=== PATIENT | female | born 1935 | race Hispanic/Latino ===

== ENCOUNTER 2018-01-28 | Emergency (ER) | payer MEDICARE ==
[2018-01-28] VITALS: BMI 34.3
[2018-01-28 00:21] VITALS: RESP 16
[2018-01-28 01:40] LABS: BASO % 0.6 % (0.0-2.0); EOS # 0.1 K/uL (0.0-0.7); EOS % 1.3 % (0.0-4.0); HEMOGLOBIN 13.3 g/dL (11.0-16.0); LYMPH # 1.6 K/uL (1.0-4.3); LYMPH % 21.1 % (20.0-40.0); MEAN CELL VOLUME 96.7 fL (81.0-99.0); MEAN CORPUSCULAR HGB CONC 34.2 g/dL (33.0-37.0); MEAN PLATELET VOLUME 8.5 fL (7.2-11.7); MONO # 0.8 K/uL (0.0-0.8); MONO % 10.8 % (0.0-10.0); NEUT # 4.9 K/uL (1.8-7.0); NEUT % 66.2 % (50.0-75.0); RBC 4.01 Mil/uL (3.80-5.20); RED CELL DISTRIBUTION WIDTH 14.5 % (11.5-14.5); WHITE BLOOD COUNT 7.4 K/uL (4.8-10.8)
[2018-01-28 01:47] LABS: INR 1.9; PROTHROMBIN TIME 20.7 SECONDS (9.7-12.2)
[2018-01-28 01:54] LABS: ALB/GLOB RATIO 1.3 (1.0-2.1); ALBUMIN 4.4 g/dL (3.5-5.0); CALCIUM 9.6 mg/dl (8.6-10.4)
[2018-01-28] MEDS ORDERED: Lidocaine 5% Patch TD STA (02:11)
[2018-01-28] MEDS ORDERED: Lidocaine 5% Patch TD ONE (02:20)
[2018-01-28 03:03] VITALS: BP 167/81; PULSE 84; TEMP 97.9; O2SAT 98
--- NOTE | 2018-01-28 03:05 | C.PDOC ---
History Of Present Illness 82 year old female presents to the ER with a complaint of right thigh pain that began at approximately 2300 when she was going to get into bed. Patient typically ambulates with a walker, but states the pain has made it difficulty to ambulate. Patient denies fall/injury, rash, fever, abdominal or inguinal pain, chest pain, SOB. Time Seen by Provider: 01/28/18 00:28 Chief Complaint (Nursing): Lower Extremity Problem/Injury History Per: Patient History/Exam Limitations: no limitations Onset/Duration Of Symptoms: Hrs Current Symptoms Are (Timing): Still Present Severity: Moderate Recent travel outside of the [place]: No Past Medical History Reviewed: Historical Data, Nursing Documentation, Vital Signs Vital Signs: Last Vital Signs Temp 97.9 F 01/28/18 03:02 Pulse 84 01/28/18 03:02 Resp 16 01/28/18 03:02 BP 167/81 H 01/28/18 03:02 Pulse Ox 98 01/28/18 06:22 - Medical History PMH: Deep Vein Thrombosis (left leg), HTN, Hypercholesterolemia, Hyperlipidemia Surgical History: Cholecystectomy - [facility] Procedures EXERCISE TREATMENT OF MUSCULOSK WHOLE USING ASSIST EQUIPMENT (01/25/17) GAIT TRAINING/AMBULAT TREATMENT USING ASSIST EQUIPMENT (01/25/17) HOME MANAGEMENT TREATMENT USING ASSIST EQUIPMENT (01/25/17) Family History: States: No Known Family Hx - Social History Hx Tobacco Use: No Hx Alcohol Use: No Hx Substance Use: No - Immunization History Hx Tetanus Toxoid Vaccination: No Hx Influenza Vaccination: Yes Hx Pneumococcal Vaccination: Yes Review Of Systems Constitutional: Negative for: Fever, Chills Cardiovascular: Negative for: Chest Pain, Palpitations Respiratory: Negative for: Cough, Shortness of Breath Gastrointestinal: Negative for: Nausea, Vomiting, Abdominal Pain Musculoskeletal: Positive for: Leg Pain Skin: Negative for: Rash Neurological: Negative for: Weakness, Numbness Physical Exam - Physical Exam Appears: Well, Non-toxic, No Acute Distress Skin: Normal Color, Warm, Dry, No Rash Head: Atraumatic, Normacephalic Eye(s): bilateral: Normal Inspection Oral Mucosa: Moist Cardiovascular: Rhythm Regular Respiratory: Normal Breath Sounds, No Rales, No Rhonchi, No Wheezing Gastrointestinal/Abdominal: Normal Exam, Bowel Sounds, Soft, No Tenderness Back: Normal Inspection, No CVA Tenderness Extremity: Normal ROM (x4), Tenderness (Mild TTP at right medial thigh), No Pedal Edema, No Calf Tenderness, Capillary Refill (<2 seconds all digits ), No Swelling, No Other (no erythema or swelling of thigh ) Extremity: Bilateral: Atraumatic, Normal Color And Temperature, Normal ROM Pulses: Left Dorsalis Pedis: Normal, Right Dorsalis Pedis: Normal Neurological/Psych: Oriented x3, Normal Motor, Normal Sensation Gait: Steady (w/ walker) ED Course And Treatment - Laboratory Results Result Diagrams: 01/28/18 01:37 01/28/18 01:37 O2 Sat by Pulse Oximetry: 98 (Room air) Pulse Ox Interpretation: Normal - Other Rad Left hip x-ray X-Ray: Interpreted by Me, Viewed By Me Interpretation: No acute fracture or dislocation. Progress Note: Blood work and right hip x-ray ordered and reviewd. Patient given PO tylenol, IV toradol and lidocaine patch for pain. Reevaluation Time: 03:00 Reassessment Condition: Improved (On reassessment, patient is resting comfortably and pain has improved. She is ambulating normally with her walker. Patient instructed to return in AM for venous doppler, as it is not currently available. She was otherwise instructed to follow up with PMD in 1-2 days.) Disposition Counseled Patient/Family Regarding: Studies Performed, Diagnosis, Need For Followup - Disposition Referrals: Jemal Lomax MD [Staff Provider] - Disposition: HOME/ ROUTINE Disposition Time: 03:00 Condition: STABLE Additional Instructions: RETURN TO THE ER IN THE MORNING FOR A VENOUS DOPPLER OF RIGHT LEG Instructions: Muscle and Bone Pain (DC) Forms: [employer] (Kiswahili) Print Language: WALLISIAN - POA Present On Arrival: None - Clinical Impression Clinical Impression: Right thigh pain - Scribe Statement The provider has reviewed the documentation as recorded by the Scribe Mahesh Ledbetter All medical record entries made by the Scribe were at my direction and personally dictated by me. I have reviewed the chart and agree that the record accurately reflects my personal performance of the history, physical exam, medical decision making, and the department course for this patient. I have also personally directed, reviewed, and agree with the discharge instructions and disposition.
--- NOTE | 2018-01-28 12:51 | RAD ---
Right hip two views History: Right pain. Comparison: None available. Findings: Right hip: Moderate degenerative changes of the right hip with joint space narrowing and osteophytosis. Productive change at the right greater tuberosity. Limited evaluation of the remainder of the bony pelvis demonstrates degenerative changes in the lower lumbar spine and left hip. Productive change along the medial cortex of the left pubic bone, nonspecific. This may be the sequelae of degenerative change. If there is concern for pelvic injury, correlation with bony CT and/or MRI may be helpful for further evaluation if clinically indicated. Fecal retention in the colon. Surgical clip in the lower pelvis. Calcified phleboliths in the pelvis. Impression: Degenerative changes of the right hip. If pain persists, consider MRI. Productive change along the medial cortex of the left pubic bone, nonspecific. This may be the sequelae of degenerative change. If there is concern for pelvic injury, correlation with bony CT and/or MRI may be helpful for further evaluation if clinically indicated.
== END 2018-01-28 03:27 | disposition home or self-care (01) ==
LOC: C.ER
DX: M79.651 Pain in right thigh (principal); E78.00 Pure hypercholesterolemia, unspecified; I10 Essential (primary) hypertension; E78.5 Hyperlipidemia, unspecified
CPT/HCPCS: 73502; 80053; 85025; 85610; 85730; 96374; 96376; 99284; J1885

== ENCOUNTER 2018-04-09 11:01 | Inpatient (IN) | payer MEDICARE ==
[2018-04-09 11:01] VITALS: BMI 34.3
--- NOTE | 2018-04-09 11:36 | C.PDOC ---
History Of Present Illness 83 year old female, with PMHx of diabetes, presents to the emergency department with complaints of pain to the right hip since yesterday status post fall. Patient states she fell at home and felt dizzy, associated with headache. Patient takes coumadin. Otherwise she denies LOC, back pain, neck pain, abdominal pain, weakness, numbness, or other injuries. - HPI Time Seen by Provider: 04/09/18 11:13 Chief Complaint (Nursing): Trauma History Per: Patient History/Exam Limitations: no limitations Onset/Duration Of Symptoms: Days Past Medical History Reviewed: Historical Data, Nursing Documentation, Vital Signs Vital Signs: Last Vital Signs Temp 97.9 F 04/09/18 11:07 Pulse 93 H 04/09/18 13:04 Resp 18 04/09/18 13:04 BP 168/75 H 04/09/18 13:04 Pulse Ox 99 04/09/18 14:08 - Medical History PMH: Deep Vein Thrombosis (left leg), HTN, Hypercholesterolemia, Hyperlipidemia Denies: Depression, HIV, Chronic Kidney Disease Surgical History: Cholecystectomy - [facility] Procedures EXERCISE TREATMENT OF MUSCULOSK WHOLE USING ASSIST EQUIPMENT (01/25/17) GAIT TRAINING/AMBULAT TREATMENT USING ASSIST EQUIPMENT (01/25/17) HOME MANAGEMENT TREATMENT USING ASSIST EQUIPMENT (01/25/17) Family History: States: No Known Family Hx - Social History Hx Tobacco Use: No Hx Alcohol Use: No Hx Substance Use: No - Immunization History Hx Tetanus Toxoid Vaccination: No Hx Influenza Vaccination: Yes Hx Pneumococcal Vaccination: Yes Review Of Systems Except As Marked, All Systems Reviewed And Found Negative. Constitutional: Negative for: Fever, Chills Cardiovascular: Negative for: Chest Pain Respiratory: Negative for: Shortness of Breath Gastrointestinal: Negative for: Nausea, Vomiting, Abdominal Pain Musculoskeletal: Positive for: Leg Pain (Right). Negative for: Neck Pain, Back Pain Neurological: Positive for: Headache. Negative for: Weakness, Numbness Physical Exam - Physical Exam Appears: Non-toxic, No Acute Distress, Other (obese) Skin: Warm, Dry, Other (bright non blanching erythematous patches on lower extremities bilaterally) Head: Atraumatic, Normacephalic Eye(s): bilateral: Normal Inspection, PERRL, EOMI Ear(s): Bilateral: Normal Nose: Normal Oral Mucosa: Moist Lips: Normal Appearing Neck: Normal, Normal ROM Lymphatic: Other (LE lymphadenopathy) Chest: Symmetrical, No Tenderness Cardiovascular: Rhythm Regular Respiratory: Normal Breath Sounds, No Rales, No Rhonchi, No Wheezing Gastrointestinal/Abdominal: Soft, No Tenderness Back: Normal Inspection, No CVA Tenderness, No Vertebral Tenderness, No Paraspinal Tenderness Pelvic: Normal External Exam Extremity: Normal ROM, Capillary Refill (<2 sec), No Deformity, Other (Tender to palpation to R hip) Extremity: Bilateral: Other (Chronic lymphedema) Neurological/Psych: Oriented x3, Normal Speech, Normal Motor, Normal Sensation ED Course And Treatment - Laboratory Results Result Diagrams: 04/09/18 11:49 04/09/18 11:49 Lab Interpretation: No Acute Changes ECG: Interpreted By Me ECG Rhythm: Sinus Rhythm ECG Interpretation: No Acute Changes Interpretation Of ECG: Left axis deviation Rate From EC O2 Sat by Pulse Oximetry: 99 (RA) Pulse Ox Interpretation: Normal - Radiology CXR: Viewed By Me, Read By Radiologist CXR Interpretation: Yes: No Acute Disease - Other Rad Hip X-Ray X-Ray: Read By Radiologist Interpretation: FINDINGS: BONES: Bone alignment and mineralization are normal. There is no acute displaced fracture or bone destruction. JOINTS: Normal. SOFT TISSUES: Normal. OTHER FINDINGS: None. IMPRESSION: No acute displaced fracture or dislocation. Please note occult fractures cannot be excluded on plain radiographs. If there is a persistent clinical concern, an MRI of the hip may be performed for further evaluation. Chest X-Ray X-Ray: Read By Radiologist Interpretation: FINDINGS: LUNGS: The lungs are well inflated and clear. PLEURA: No pneumothorax or pleural fluid seen. CARDIOVASCULAR: Normal. 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 VISUALIZED UPPER ABDOMEN: Normal. OTHER FINDINGS: None. IMPRESSION: No active pulmonary disease. - CT Scan/US CT Head Other Rad Studies (CT/US): Read By Radiologist, Radiology Report Reviewed CT/US Interpretation: FINDINGS: HEMORRHAGE: No intracranial hemorrhage. BRAIN : There are mild chronic microangiopathic changes. There are small lacunar infarctions in bilateral basal ganglia there is no mass, mass effect or abnormal extra-axial fluid collection. There is no territorial infarction. The midline sagittal structures are normal.There are coarse atherosclerotic calcifications in the cavernous carotid arteries. VENTRICLES: There is mild age-related global parenchymal volume loss and proportionate enlargement of the ventricles and cortical sulci. CALVARIUM: There is no calvarial fracture or extracranial soft tissue swelling. PARANASAL SINUSES: Predominantly clear. MASTOID AIR CELLS: Predominantly clear. OTHER FINDINGS: None. IMPRESSION: No acute intracranial abnormality. 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 Mild chronic microangiopathic changes and mild age-related global parenchymal volume loss. - Physician Consult Information Physician Contacted: Jessica Coyle Outcome Of Conversation: accepted the pt Medical Decision Making Medical Decision Making: Impression: Hip pain Plan: -CT Head -EKG -Labs -Chest X-Ray -Tylenol 975 mg PO -Urinalysis -Hip X-Ray Disposition Counseled Patient/Family Regarding: Studies Performed, Diagnosis - Disposition Disposition: HOSPITALIZED Disposition Time: 13:05 Condition: STABLE - Clinical Impression Clinical Impression: Near syncope, Hip pain, right, Hematuria, Cellulitis - PA / [employer] / Resident Statement MD/DO has reviewed & agrees with the documentation as recorded. - Scribe Statement The provider has reviewed the documentation as recorded by the Scribjasmin Haskins All medical record entries made by the Dorota were at my direction and personally dictated by me. I have reviewed the chart and agree that the record accurately reflects my personal performance of the history, physical exam, medical decision making, and the department course for this patient. I have also personally directed, reviewed, and agree with the discharge instructions and disposition. Decision To Admit - Pt Status Changed To: Hospital Disposition Of: Observation - . Bed Request Type: Telemetry Admitting Physician: Jessica Coyle Patient Diagnosis: Near syncope, Hip pain, right, Hematuria, Cellulitis
[2018-04-09 12:05] LABS: BASO % 0.4 % (0.0-2.0); EOS % 0.7 % (0.0-4.0); HEMOGLOBIN 12.1 g/dL (11.0-16.0); LYMPH # 1.3 K/uL (1.0-4.3); LYMPH % 18.7 % (20.0-40.0); MEAN CORPUSCULAR HEMOGLOBIN 32.8 pg (27.0-31.0); MEAN CORPUSCULAR HGB CONC 33.8 g/dL (33.0-37.0); MEAN PLATELET VOLUME 8.4 fL (7.2-11.7); MONO # 0.7 K/uL (0.0-0.8); MONO % 9.4 % (0.0-10.0); NEUT % 70.8 % (50.0-75.0); RBC 3.7 Mil/uL (3.80-5.20); RED CELL DISTRIBUTION WIDTH 14.1 % (11.5-14.5)
[2018-04-09 12:09] LABS: PROTHROMBIN TIME 40.9 SECONDS (9.7-12.2)
[2018-04-09 12:17] LABS: INR 3.7
[2018-04-09 12:20] LABS: BLOOD UREA NITROGEN 27 mg/dL (7-17); CALCIUM 9.7 mg/dl (8.6-10.4); GFR NON-AFRICAN AMERICAN 53
[2018-04-09 12:22] LABS: ALB/GLOB RATIO 1.2 (1.0-2.1); ALBUMIN 4.1 g/dL (3.5-5.0); ALT/SGPT 43 U/L (9-52); AST/SGOT 52 U/L (14-36)
--- NOTE | 2018-04-09 12:27 | CT ---
Date of service: 04/09/2018 PROCEDURE: CT HEAD WITHOUT CONTRAST. HISTORY: HEADACHE, S/P FALL ON COUMADIN COMPARISON: None available. TECHNIQUE: Axial computed tomography images were obtained through the head/brain without intravenous contrast. Radiation dose: Total exam DLP = mGy-cm. This CT exam was performed using one or more of the following dose reduction techniques: Automated exposure control, adjustment of the mA and/or kV according to patient size, and/or use of iterative reconstruction technique. FINDINGS: HEMORRHAGE: No intracranial hemorrhage. BRAIN: There are mild chronic microangiopathic changes. There are small lacunar infarctions in bilateral basal ganglia there is no mass, mass effect or abnormal extra-axial fluid collection. There is no territorial infarction. The midline sagittal structures are normal.There are coarse atherosclerotic calcifications in the cavernous carotid arteries. VENTRICLES: There is mild age-related global parenchymal volume loss and proportionate enlargement of the ventricles and cortical sulci. CALVARIUM: There is no calvarial fracture or extracranial soft tissue swelling. PARANASAL SINUSES: Predominantly clear. MASTOID AIR CELLS: Predominantly clear. OTHER FINDINGS: None. IMPRESSION: No acute intracranial abnormality. 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 Mild chronic microangiopathic changes and mild age-related global parenchymal volume loss.
--- NOTE | 2018-04-09 12:29 | RAD ---
Date of service: 04/09/2018 PROCEDURE: CHEST RADIOGRAPH, 1 VIEW HISTORY: Dizziness COMPARISON: 04/26/2016. FINDINGS: LUNGS: The lungs are well inflated and clear. PLEURA: No pneumothorax or pleural fluid seen. CARDIOVASCULAR: Normal. 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 VISUALIZED UPPER ABDOMEN: Normal. OTHER FINDINGS: None. IMPRESSION: No active pulmonary disease.
[2018-04-09 12:31] LABS: B-TYPE NATRIURETIC PEPTIDE 533 pg/mL (0-900)
--- NOTE | 2018-04-09 12:42 | RAD ---
PROCEDURE: Right Hip Radiographs. HISTORY: Pain COMPARISON: None. FINDINGS: BONES: Bone alignment and mineralization are normal. There is no acute displaced fracture or bone destruction. JOINTS: Normal. SOFT TISSUES: Normal. OTHER FINDINGS: None. IMPRESSION: No acute displaced fracture or dislocation. Please note occult fractures cannot be excluded on plain radiographs. If there is a persistent clinical concern, an MRI of the hip may be performed for further evaluation.
[2018-04-09 12:58] LABS: SQUAMOUS EPITHIAL 1 /hpf (0-5); URINE BILIRUBIN NEGATIVE (NEGATIVE); URINE BLOOD 2+ (NEGATIVE); URINE CLARITY Clear (Clear); URINE COLOR Yellow (YELLOW); URINE GLUCOSE (UA) NORMAL (Normal); URINE LEUKOCYTE ESTERASE NEG Leu/uL (Negative); URINE PROTEIN NEGATIVE (NEGATIVE); URINE UROBILINOGEN NORMAL mg/dL (0.2-1.0)
[2018-04-09] MEDS ORDERED: cefTRIAXone IV 1 gm in Dextros 50 ML IVPB ONE (13:11)
[2018-04-09 16:28] LABS: CK-MB 3.11 ng/mL (0.0-3.38)
[2018-04-09 16:29] LABS: TROPONIN I 0.027 ng/mL (0.00-0.120)
--- NOTE | 2018-04-09 18:08 | CP.PCM.HP ---
Past Patient History - Infectious Disease Hx of Infectious Diseases: None - Tetanus Immunizations Tetanus Immunization: Unknown - Past Medical History & Family History Past Medical History?: Yes - Past Social History Smoking Status: Never Smoked - CARDIAC Hx Hypercholesterolemia: Yes Hx Hypertension: Yes - PULMONARY Hx Respiratory Disorders: No - NEUROLOGICAL Hx Neurological Disorder: No - HEENT Hx HEENT Problems: No - RENAL Hx Chronic Kidney Disease: No - ENDOCRINE/METABOLIC Hx Endocrine Disorders: No - HEMATOLOGICAL/ONCOLOGICAL Hx Human Immunodeficiency Virus (HIV): No - INTEGUMENTARY Hx Dermatological Problems: No - MUSCULOSKELETAL/RHEUMATOLOGICAL Hx Falls: Yes - GASTROINTESTINAL Hx Gastrointestinal Disorders: No - GENITOURINARY/GYNECOLOGICAL Hx Genitourinary Disorders: No - PSYCHIATRIC Hx Depression: No Hx Substance Use: No - SURGICAL HISTORY Hx Cholecystectomy: Yes - ANESTHESIA Hx Anesthesia: Yes Hx Anesthesia Reactions: No Hx Malignant Hyperthermia: No Meds Allergies/Adverse Reactions: Allergies Allergy/AdvReac Type Severity Reaction Status Date / Time No Known Allergies Allergy Verified 04/09/18 11:11 Physical Exam - Constitutional Appears: Well - Head Exam Head Exam: ATRAUMATIC, NORMAL INSPECTION, NORMOCEPHALIC - Eye Exam Eye Exam: EOMI, Normal appearance, PERRL Pupil Exam: NORMAL ACCOMODATION, PERRL - ENT Exam ENT Exam: Mucous Membranes Moist, Normal Exam - Neck Exam Neck exam: Positive for: Normal Inspection - Respiratory Exam Respiratory Exam: Decreased Breath Sounds - Cardiovascular Exam Cardiovascular Exam: REGULAR RHYTHM, +S1, +S2 - GI/Abdominal Exam GI & Abdominal Exam: Diminished Bowel Sounds, Soft - Rectal Exam Rectal Exam: Deferred Results - Vital Signs Recent Vital Signs: Last Vital Signs Temp 98.3 F 04/09/18 17:11 Pulse 103 H 04/09/18 17:11 Resp 20 04/09/18 17:11 BP 187/76 H 04/09/18 17:11 Pulse Ox 98 04/09/18 17:11 - Labs Result Diagrams: 04/09/18 11:49 04/09/18 11:49 Labs: Laboratory Results - last 24 hr 04/09/18 04/09/18 04/09/18 11:49 11:49 11:49 WBC 7.0 RBC 3.70 L Hgb 12.1 Hct 35.9 MCV 97.0 MCH 32.8 H MCHC 33.8 RDW 14.1 Plt Count 189 MPV 8.4 Neut % (Auto) 70.8 Lymph % (Auto) 18.7 L Real % (Auto) 9.4 Eos % (Auto) 0.7 Baso % (Auto) 0.4 Neut # (Auto) 5.0 Lymph # (Auto) 1.3 Real # (Auto) 0.7 Eos # (Auto) 0.0 Baso # (Auto) 0.0 ESR 20 PT 40.9 H INR 3.7 APTT 41 H Sodium 140 Potassium 5.0 Chloride 106 Carbon Dioxide 24 Anion Gap 15 BUN 27 H Creatinine 1.0 Est GFR ( Amer) > 60 Est GFR (Non-Af Amer) 53 POC Glucose (mg/dL) Random Glucose 138 H Calcium 9.7 Total Bilirubin 0.9 AST 52 H D ALT 43 Alkaline Phosphatase 102 Total Creatine Kinase 227 H CK-MB (Mass) Troponin I 0.0300 C-React Prot High Sens NT-Pro-B Natriuret Pep 533 Total Protein 7.6 Albumin 4.1 Globulin 3.5 Albumin/Globulin Ratio 1.2 Urine Color Urine Clarity Urine pH Ur Specific [place] Urine Protein Urine Glucose (UA) Urine Ketones Urine Blood Urine Nitrate Urine Bilirubin Urine Urobilinogen Ur Leukocyte Esterase Urine WBC (Auto) Urine RBC (Auto) Ur Squamous Epith Cells 04/09/18 04/09/18 04/09/18 11:51 12:46 16:06 WBC RBC Hgb Hct MCV MCH MCHC RDW Plt Count MPV Neut % (Auto) Lymph % (Auto) Real % (Auto) Eos % (Auto) Baso % (Auto) Neut # (Auto) Lymph # (Auto) Real # (Auto) Eos # (Auto) Baso # (Auto) ESR PT INR APTT Sodium Potassium Chloride Carbon Dioxide Anion Gap BUN Creatinine Est GFR ( Amer) Est GFR (Non-Af Amer) POC Glucose (mg/dL) Random Glucose Calcium Total Bilirubin AST ALT Alkaline Phosphatase Total Creatine Kinase 230 H CK-MB (Mass) 3.11 Troponin I 0.0270 C-React Prot High Sens 4.46 H NT-Pro-B Natriuret Pep Total Protein Albumin Globulin Albumin/Globulin Ratio Urine Color Yellow Urine Clarity Clear Urine pH 5.0 Ur Specific [place] 1.010 Urine Protein Negative Urine Glucose (UA) Normal Urine Ketones Negative Urine Blood 2+ H Urine Nitrate Negative Urine Bilirubin Negative Urine Urobilinogen Normal Ur Leukocyte Esterase Neg Urine WBC (Auto) < 1 Urine RBC (Auto) 11 H Ur Squamous Epith Cells 1 04/09/18 17:06 WBC RBC Hgb Hct MCV MCH MCHC RDW Plt Count MPV Neut % (Auto) Lymph % (Auto) Real % (Auto) Eos % (Auto) Baso % (Auto) Neut # (Auto) Lymph # (Auto) Real # (Auto) Eos # (Auto) Baso # (Auto) ESR PT INR APTT Sodium Potassium Chloride Carbon Dioxide Anion Gap BUN Creatinine Est GFR ( Amer) Est GFR (Non-Af Amer) POC Glucose (mg/dL) 118 H Random Glucose Calcium Total Bilirubin AST ALT Alkaline Phosphatase Total Creatine Kinase CK-MB (Mass) Troponin I C-React Prot High Sens NT-Pro-B Natriuret Pep Total Protein Albumin Globulin Albumin/Globulin Ratio Urine Color Urine Clarity Urine pH Ur Specific [place] Urine Protein Urine Glucose (UA) Urine Ketones Urine Blood Urine Nitrate Urine Bilirubin Urine Urobilinogen Ur Leukocyte Esterase Urine WBC (Auto) Urine RBC (Auto) Ur Squamous Epith Cells
[2018-04-10 01:42] LABS: CK-MB 4.63 ng/mL (0.0-3.38); TROPONIN I 0.12 ng/mL (0.00-0.120)
--- NOTE | 2018-04-10 07:12 | CP.PCM.CON ---
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 X 2 DAYS LEFT SUBCORTICAL DYSFUNCTION R/O CAROTID Vs CARDIAC STROKE PROPHYLAXIS WHEN INR STABLE RESUME COUMADIN OOB / PT BLOODWORK UP /MRI/CAROTID/ECHO/EEG Past Patient History - Infectious Disease Hx of Infectious Diseases: None - Tetanus Immunizations Tetanus Immunization: Unknown - Past Medical History & Family History Past Medical History?: Yes - Past Social History Smoking Status: Never Smoked - CARDIAC Hx Hypercholesterolemia: Yes Hx Hypertension: Yes - PULMONARY Hx Respiratory Disorders: No - NEUROLOGICAL Hx Neurological Disorder: No - HEENT Hx HEENT Problems: No - RENAL Hx Chronic Kidney Disease: No - ENDOCRINE/METABOLIC Hx Endocrine Disorders: No - HEMATOLOGICAL/ONCOLOGICAL Hx Human Immunodeficiency Virus (HIV): No - INTEGUMENTARY Hx Dermatological Problems: No - MUSCULOSKELETAL/RHEUMATOLOGICAL Hx Falls: Yes - GASTROINTESTINAL Hx Gastrointestinal Disorders: No - GENITOURINARY/GYNECOLOGICAL Hx Genitourinary Disorders: No - PSYCHIATRIC Hx Depression: No Hx Substance Use: No - SURGICAL HISTORY Hx Cholecystectomy: Yes - ANESTHESIA Hx Anesthesia: Yes Hx Anesthesia Reactions: No Hx Malignant Hyperthermia: No Meds Allergies/Adverse Reactions: Allergies Allergy/AdvReac Type Severity Reaction Status Date / Time No Known Allergies Allergy Verified 04/09/18 11:11 - Medications Medications: Current Medications Amlodipine Besylate (Norvasc) 10 mg PO DAILY [facility] Last Admin: 04/09/18 18:55 Dose: 10 mg Aspirin (Ecotrin) 81 mg PO DAILY [facility] Ergocalciferol (Drisdol 50,000 Intl Units Cap) 1 cap PO QWK [facility] Hydrochlorothiazide (Microzide) 12.5 mg PO DAILY [facility] Ceftriaxone Sodium 1 gm/ (Sodium Chloride) 100 mls @ 100 mls/hr IVPB DAILY [facility] PRN Reason: Protocol Losartan Potassium (Cozaar) 50 mg PO DAILY [facility] Metoprolol Succinate (Toprol Xl) 100 mg PO DAILY [facility] Morphine Sulfate (Morphine) 2 mg IVP Q6H PRN PRN Reason: Pain, severe (8-10) Last Admin: 04/09/18 22:19 Dose: 2 mg Tramadol HCl (Ultram) 50 mg PO Q6 PRN PRN Reason: Pain, moderate (4-7) Vitamin B Complex/Vitamin C (Berocca) 1 tab PO DAILY [facility] Results - Vital Signs Recent Vital Signs: Last Vital Signs Temp 98.3 F 04/10/18 00:00 Pulse 99 H 04/10/18 00:00 Resp 20 04/10/18 00:00 BP 139/58 L 04/10/18 00:00 Pulse Ox 97 04/10/18 00:00 - Labs Result Diagrams: 04/09/18 11:49 04/09/18 11:49 Labs: Laboratory Results - last 24 hr 04/09/18 04/09/18 04/09/18 11:49 11:49 11:49 WBC 7.0 RBC 3.70 L Hgb 12.1 Hct 35.9 MCV 97.0 MCH 32.8 H MCHC 33.8 RDW 14.1 Plt Count 189 MPV 8.4 Neut % (Auto) 70.8 Lymph % (Auto) 18.7 L Vernon % (Auto) 9.4 Eos % (Auto) 0.7 Baso % (Auto) 0.4 Neut # (Auto) 5.0 Lymph # (Auto) 1.3 Vernon # (Auto) 0.7 Eos # (Auto) 0.0 Baso # (Auto) 0.0 ESR 20 PT 40.9 H INR 3.7 APTT 41 H Sodium 140 Potassium 5.0 Chloride 106 Carbon Dioxide 24 Anion Gap 15 BUN 27 H Creatinine 1.0 Est GFR ( Amer) > 60 Est GFR (Non-Af Amer) 53 POC Glucose (mg/dL) Random Glucose 138 H Calcium 9.7 Total Bilirubin 0.9 AST 52 H D ALT 43 Alkaline Phosphatase 102 Total Creatine Kinase 227 H CK-MB (Mass) Troponin I 0.0300 C-React Prot High Sens NT-Pro-B Natriuret Pep 533 Total Protein 7.6 Albumin 4.1 Globulin 3.5 Albumin/Globulin Ratio 1.2 Prolactin Urine Color Urine Clarity Urine pH Ur Specific [place] Urine Protein Urine Glucose (UA) Urine Ketones Urine Blood Urine Nitrate Urine Bilirubin Urine Urobilinogen Ur Leukocyte Esterase Urine WBC (Auto) Urine RBC (Auto) Ur Squamous Epith Cells 04/09/18 04/09/18 04/09/18 11:51 12:46 16:06 WBC RBC Hgb Hct MCV MCH MCHC RDW Plt Count MPV Neut % (Auto) Lymph % (Auto) Vernon % (Auto) Eos % (Auto) Baso % (Auto) Neut # (Auto) Lymph # (Auto) Vernon # (Auto) Eos # (Auto) Baso # (Auto) ESR PT INR APTT Sodium Potassium Chloride Carbon Dioxide Anion Gap BUN Creatinine Est GFR ( Amer) Est GFR (Non-Af Amer) POC Glucose (mg/dL) Random Glucose Calcium Total Bilirubin AST ALT Alkaline Phosphatase Total Creatine Kinase 230 H CK-MB (Mass) 3.11 Troponin I 0.0270 C-React Prot High Sens 4.46 H NT-Pro-B Natriuret Pep Total Protein Albumin Globulin Albumin/Globulin Ratio Prolactin Urine Color Yellow Urine Clarity Clear Urine pH 5.0 Ur Specific [place] 1.010 Urine Protein Negative Urine Glucose (UA) Normal Urine Ketones Negative Urine Blood 2+ H Urine Nitrate Negative Urine Bilirubin Negative Urine Urobilinogen Normal Ur Leukocyte Esterase Neg Urine WBC (Auto) < 1 Urine RBC (Auto) 11 H Ur Squamous Epith Cells 1 04/09/18 04/09/18 04/10/18 17:06 20:56 01:06 WBC RBC Hgb Hct MCV MCH MCHC RDW Plt Count MPV Neut % (Auto) Lymph % (Auto) Vernon % (Auto) Eos % (Auto) Baso % (Auto) Neut # (Auto) Lymph # (Auto) Vernon # (Auto) Eos # (Auto) Baso # (Auto) ESR PT INR APTT Sodium Potassium Chloride Carbon Dioxide Anion Gap BUN Creatinine Est GFR ( Amer) Est GFR (Non-Af Amer) POC Glucose (mg/dL) 118 H 184 H Random Glucose Calcium Total Bilirubin AST ALT Alkaline Phosphatase Total Creatine Kinase CK-MB (Mass) Troponin I C-React Prot High Sens NT-Pro-B Natriuret Pep Total Protein Albumin Globulin Albumin/Globulin Ratio Prolactin 15.6 Urine Color Urine Clarity Urine pH Ur Specific [place] Urine Protein Urine Glucose (UA) Urine Ketones Urine Blood Urine Nitrate Urine Bilirubin Urine Urobilinogen Ur Leukocyte Esterase Urine WBC (Auto) Urine RBC (Auto) Ur Squamous Epith Cells 04/10/18 01:06 WBC RBC Hgb Hct MCV MCH MCHC RDW Plt Count MPV Neut % (Auto) Lymph % (Auto) Vernon % (Auto) Eos % (Auto) Baso % (Auto) Neut # (Auto) Lymph # (Auto) Vernon # (Auto) Eos # (Auto) Baso # (Auto) ESR PT INR APTT Sodium Potassium Chloride Carbon Dioxide Anion Gap BUN Creatinine Est GFR ( Amer) Est GFR (Non-Af Amer) POC Glucose (mg/dL) Random Glucose Calcium Total Bilirubin AST ALT Alkaline Phosphatase Total Creatine Kinase 393 H CK-MB (Mass) 4.63 H Troponin I 0.1200 C-React Prot High Sens NT-Pro-B Natriuret Pep Total Protein Albumin Globulin Albumin/Globulin Ratio Prolactin Urine Color Urine Clarity Urine pH Ur Specific [place] Urine Protein Urine Glucose (UA) Urine Ketones Urine Blood Urine Nitrate Urine Bilirubin Urine Urobilinogen Ur Leukocyte Esterase Urine WBC (Auto) Urine RBC (Auto) Ur Squamous Epith Cells
[2018-04-10] MEDS ORDERED: cefTRIAXone IV 1 gm in Dextros 50 ML IVPB SCH (10:00)
[2018-04-10] MEDS: Vitamin B Complex/Vitamin C Tab PO SCH (10:52)
[2018-04-10] MEDS: Ergocalciferol 50,000 Intl Units Cap PO SCH (10:53)
[2018-04-10] MEDS: Metoprolol Succinate 100 mg XL Tab PO SCH (10:54)
--- NOTE | 2018-04-10 13:10 | CP.PCM.CON ---
History of Present Illness - History of Present Illness History of Present Illness: Orthopedic consultation Dr. Power 83F complains of right groin pain and redness to her feet and lower legs. She says she cant lift her right hip because it hurts too much. She says the pain is in her right groin and also her back, where she has had pain "for a long time ". She says she fell a year ago, and the pain started at that time. Then she mentions she had a fall recently, and that is why she came to the ER. She ambulates with walker. Denies fever/chills/CP/SOB/dizziness/numbness/tingling at this time. Prior DVT L popliteal and tibial vein per chart 2014 Record reviewed, multiple ER visits, last 01/2018 for back/hip pain and falls. Patient takes coumadin, INR on admission 3.7 Review of Systems - Review of Systems All systems: reviewed and no additional remarkable complaints except - Cardiovascular Cardiovascular: As Per HPI - Gastrointestinal Gastrointestinal: As Per HPI - Musculoskeletal Musculoskeletal: As Per HPI - Integumentary Integumentary: As Per HPI - Neurological Neurological: As Per HPI - Hematologic/Lymphatic Hematologic: Easy Bruising Past Patient History - Infectious Disease Hx of Infectious Diseases: None - Tetanus Immunizations Tetanus Immunization: Unknown - Past Medical History & Family History Past Medical History?: Yes Past Family History: Reviewed and not pertinent - Past Social History Smoking Status: Never Smoked - CARDIAC Hx Hypercholesterolemia: Yes Hx Hypertension: Yes Other/Comment: Left LE DVT 2014 - PULMONARY Hx Respiratory Disorders: No - NEUROLOGICAL Hx Neurological Disorder: No - HEENT Hx HEENT Problems: No - RENAL Hx Chronic Kidney Disease: No - ENDOCRINE/METABOLIC Hx Endocrine Disorders: No - HEMATOLOGICAL/ONCOLOGICAL Hx Human Immunodeficiency Virus (HIV): No - INTEGUMENTARY Hx Dermatological Problems: No - MUSCULOSKELETAL/RHEUMATOLOGICAL Hx Falls: Yes - GASTROINTESTINAL Hx Gastrointestinal Disorders: No - GENITOURINARY/GYNECOLOGICAL Hx Genitourinary Disorders: No - PSYCHIATRIC Hx Depression: No Hx Substance Use: No - SURGICAL HISTORY Hx Cholecystectomy: Yes - ANESTHESIA Hx Anesthesia: Yes Hx Anesthesia Reactions: No Hx Malignant Hyperthermia: No Meds Allergies/Adverse Reactions: Allergies Allergy/AdvReac Type Severity Reaction Status Date / Time No Known Allergies Allergy Verified 04/09/18 11:11 - Medications Medications: Current Medications Amlodipine Besylate (Norvasc) 10 mg PO DAILY [facility] Last Admin: 04/10/18 10:54 Dose: 10 mg Aspirin (Ecotrin) 81 mg PO DAILY [facility] Last Admin: 04/10/18 10:53 Dose: 81 mg Ergocalciferol (Drisdol 50,000 Intl Units Cap) 1 cap PO QWK [facility] Last Admin: 04/10/18 10:53 Dose: 1 cap Hydrochlorothiazide (Microzide) 12.5 mg PO DAILY [facility] Last Admin: 04/10/18 10:54 Dose: 12.5 mg Ceftriaxone Sodium 1 gm/ (Sodium Chloride) 100 mls @ 100 mls/hr IVPB DAILY [facility] PRN Reason: Protocol Last Admin: 04/10/18 10:53 Dose: 100 mls/hr Losartan Potassium (Cozaar) 50 mg PO DAILY [facility] Last Admin: 04/10/18 10:54 Dose: 50 mg Metoprolol Succinate (Toprol Xl) 100 mg PO DAILY [facility] Last Admin: 04/10/18 10:54 Dose: 100 mg Morphine Sulfate (Morphine) 2 mg IVP Q6H PRN PRN Reason: Pain, severe (8-10) Last Admin: 04/10/18 08:30 Dose: 2 mg Tramadol HCl (Ultram) 50 mg PO Q6 PRN PRN Reason: Pain, moderate (4-7) Vitamin B Complex/Vitamin C (Berocca) 1 tab PO DAILY [facility] Last Admin: 04/10/18 10:52 Dose: 1 tab Physical Exam - Constitutional Appears: Well, No Acute Distress (sitting on EOB eating) - Head Exam Head Exam: ATRAUMATIC - Neck Exam Neck exam: Positive for: Full Rom, Normal Inspection - Extremities Exam Additional comments: +ROM ankle/toes flex/DF/PF without pain bilaterally +flex/ext knees B without pain left hip flex/int/ext rotation without pain, no pain with add/abd B hips right hip: no obvious pain with int/ext rotation of right hip. C/o pain and weakness with attempts at active hip flexion on right. LLE: 5/5 great toe ext, DF/PF, knee flex/ext, hip flex RLE: 5/5 great toe ext, DF/PF, 4/5 knee extension, 5/5 knee flexion, 3+/5 hip flexion sensation intact and equal to light touch BLE - Back Exam Back exam: paraspinal tenderness, vertebral tenderness - Neurological Exam Neurological exam: Alert, Oriented x3 - Psychiatric Exam Psychiatric exam: Normal Affect, Normal Mood - Skin Skin Exam: Dry, Warm Additional comments: noted area of patchy redness to left lower leg distal 1/2 anteriorly, confluent on right to same area noted redness/ecchymosis to distal foot, base of toes bilaterally, mildly tender Results - Vital Signs Recent Vital Signs: Last Vital Signs Temp 98.1 F 04/10/18 07:00 Pulse 105 H 04/10/18 07:00 Resp 20 04/10/18 07:00 BP 155/72 H 04/10/18 07:00 Pulse Ox 98 04/10/18 07:00 - Labs Result Diagrams: 04/09/18 11:49 04/09/18 11:49 Labs: Laboratory Results - last 24 hr 04/09/18 04/09/18 04/09/18 11:49 16:06 17:06 ESR 20 POC Glucose (mg/dL) 118 H Hemoglobin A1c Total Creatine Kinase 230 H CK-MB (Mass) 3.11 Troponin I 0.0270 Triglycerides Cholesterol LDL Cholesterol Direct HDL Cholesterol TSH 3rd Generation Prolactin 04/09/18 04/10/18 04/10/18 20:56 01:06 01:06 ESR POC Glucose (mg/dL) 184 H Hemoglobin A1c Total Creatine Kinase 393 H CK-MB (Mass) 4.63 H Troponin I 0.1200 Triglycerides Cholesterol LDL Cholesterol Direct HDL Cholesterol TSH 3rd Generation Prolactin 15.6 04/10/18 04/10/18 04/10/18 09:01 11:17 11:28 ESR POC Glucose (mg/dL) 188 H Hemoglobin A1c 5.7 Total Creatine Kinase CK-MB (Mass) Troponin I Triglycerides 57 Cholesterol 159 LDL Cholesterol Direct 50 HDL Cholesterol 78 H TSH 3rd Generation 1.79 Prolactin - Impressions Impression: Accession No. : [id number] Patient Name / ID : KENROY Celeste / [id number] Exam Date : 04/09/2018 11:46:59 ( Approved ) Study Comment : Sex / Age : F / 83Y Creator : Malissa Wilson MD Dictator : Malissa Wilson MD Geospatial Image Analyst : Military Aircraft Designer : Malissa Wilson MD Approver2 : Report Date : 04/09/2018 12:40:54 My Comment : PROCEDURE: Right Hip Radiographs. HISTORY: Pain COMPARISON: None. FINDINGS: BONES: Bone alignment and mineralization are normal. There is no acute displaced fracture or bone destruction. JOINTS: Normal. SOFT TISSUES: Normal. OTHER FINDINGS: None. IMPRESSION: No acute displaced fracture or dislocation. Please note occult fractures cannot be excluded on plain radiographs. If there is a persistent clinical concern, an MRI of the hip may be performed for further evaluation.Accession No. : [id number] Patient Name / ID : KENROY Celeste / [id number] Exam Date : 01/28/2018 01:26:06 ( Approved ) Study Comment : Sex / Age : F / 82Y Creator : Earle Hernandez MD Dictator : Earle Hernandez MD Geospatial Image Analyst : Military Aircraft Designer : Earle Hernandez MD Approver2 : Report Date : 01/28/2018 12:49:58 My Comment : Right hip two views History: Right pain. Comparison: None available. Findings: Right hip: Moderate degenerative changes of the right hip with joint space narrowing and osteophytosis. Productive change at the right greater tuberosity. Limited evaluation of the remainder of the bony pelvis demonstrates degenerative changes in the lower lumbar spine and left hip. Productive change along the medial cortex of the left pubic bone, nonspecific. This may be the sequelae of degenerative change. If there is concern for pelvic injury, correlation with bony CT and/or MRI may be helpful for further evaluation if clinically indicated. Fecal retention in the colon. Surgical clip in the lower pelvis. Calcified phleboliths in the pelvis. Impression: Degenerative changes of the right hip. If pain persists, consider MRI. Productive change along the medial cortex of the left pubic bone, nonspecific. This may be the sequelae of degenerative change. If there is concern for pelvic injury, correlation with bony CT and/or MRI may be helpful for further evaluation if clinically indicated. Assessment & Plan (1) Degenerative joint disease of right hip Assessment and Plan: mild with multiple recent falls, r/o occult fx of hip and of pelvis MRI right hip, CT scan pelvis VTE proph, recheck INR SCDs if dopplers neg for dVT venous dopplers reading pending d/w Dr. Power, agrees with above Status: Acute (2) Hip pain, right Assessment and Plan: falls see above plan for PT/OT if no occult fx Status: Acute (3) Spondylolysis of lumbar region Assessment and Plan: MRI lumbar spine reviewed from 01/2017 which shows multilevel spondylosis, spondylolisthesis Gr I L4 on L5, spinal stenosis Disc herniation L3/L4, L4/L5 with partial sacralization L5 new MRI pending, will follow, consider pain mgmt vs spine consultation Status: Acute
--- NOTE | 2018-04-10 16:55 | PCM.FALL ---
Post Fall Progress Note - Post Fall Fall Date: 04/10/18 Fall Time: 16:16 Description of Fall: CODE STAR Called at 16:16 after patient slid off of reclining chair unto the floor. Per patient, the back part of the chair pushed backwards slowly pushign patient forwards. Patient states that she fell on her "bum". Patient was assisted into chair by team present. Patient remained awake and alert. Patient irritated by the situation. - Post Fall Exam Vital Sign: Temp Pulse Resp BP Pulse Ox 98.2 F 96 H 20 145/81 97 04/10/18 16:35 04/10/18 16:35 04/10/18 16:35 04/10/18 16:35 04/10/18 16:35 Skull Exam: Negative for: Scalp wound Eye Exam: Negative for: Pupils equal Ear Exam: Negative for: Discharge Abdomen Exam: Negative for: Tenderness Pelvic Exam: Negative for: Tenderness Impression/Plan: Nursing staff present onsite. Initial vitals at 16:23 were as stated : 98.2 F, 96H, 145/81, R 20, 97 oxygen saturation Patient was assisted back into a chair . Exam findings: patient awake, alert and aware of surroundings. Able to move extremities as tolerated. Recommedations for closer evaluation. Patient to ask for assistance when moving from seat to bed and vice versa. Patient's room was changed to 1:1 room. No further orders placed. Jose Mcdowell PGY 3
--- NOTE | 2018-04-10 18:29 | CP.PCM.PN ---
Subjective - Date & Time of Evaluation Date of Evaluation: 04/10/18 Time of Evaluation: 09:00 - Subjective Subjective: clinically same Objective - Vital Signs/Intake and Output Vital Signs (last 24 hours): Temp Pulse Resp BP Pulse Ox 98.2 F 96 H 20 145/81 97 04/10/18 16:35 04/10/18 16:35 04/10/18 16:35 04/10/18 16:35 04/10/18 16:35 - Medications Medications: Current Medications Amlodipine Besylate (Norvasc) 10 mg PO DAILY [facility] Last Admin: 04/10/18 10:54 Dose: 10 mg Aspirin (Ecotrin) 81 mg PO DAILY [facility] Last Admin: 04/10/18 10:53 Dose: 81 mg Ergocalciferol (Drisdol 50,000 Intl Units Cap) 1 cap PO QWK [facility] Last Admin: 04/10/18 10:53 Dose: 1 cap Hydrochlorothiazide (Microzide) 12.5 mg PO DAILY [facility] Last Admin: 04/10/18 10:54 Dose: 12.5 mg Ceftriaxone Sodium 1 gm/ (Sodium Chloride) 100 mls @ 100 mls/hr IVPB DAILY [facility] PRN Reason: Protocol Last Admin: 04/10/18 10:53 Dose: 100 mls/hr Losartan Potassium (Cozaar) 50 mg PO DAILY [facility] Last Admin: 04/10/18 10:54 Dose: 50 mg Metoprolol Succinate (Toprol Xl) 100 mg PO DAILY [facility] Last Admin: 04/10/18 10:54 Dose: 100 mg Morphine Sulfate (Morphine) 2 mg IVP Q6H PRN PRN Reason: Pain, severe (8-10) Last Admin: 04/10/18 08:30 Dose: 2 mg Tramadol HCl (Ultram) 50 mg PO Q6 PRN PRN Reason: Pain, moderate (4-7) Vitamin B Complex/Vitamin C (Berocca) 1 tab PO DAILY [facility] Last Admin: 04/10/18 10:52 Dose: 1 tab - Labs Labs: 04/09/18 11:49 04/09/18 11:49 PT 40.9 SECONDS (9.7-12.2) H 04/09/18 11:49 INR 3.7 04/09/18 11:49 APTT 41 SECONDS (21-34) H 04/09/18 11:49
--- NOTE | 2018-04-10 19:18 | CARD ---
APPROVED REPORT Date of service: 04/09/2018 EKG Measurement Heart [id number] <Conclusion> Normal sinus rhythm Left axis deviation Pulmonary disease pattern Abnormal ECG
[2018-04-10 19:57] LABS: PROTHROMBIN TIME 36.3 SECONDS (9.7-12.2)
[2018-04-10 20:11] LABS: INR 3.3
--- NOTE | 2018-04-11 07:45 | CON ---
DATE: 04/10/2018 ATTENDING PHYSICIAN: Joy Coyle MD LOCATION: The patient is in room #560, bed B. REASON FOR THE CONSULTATION: Leg weakness and fall. CHIEF COMPLAINT: The patient was brought into [facility] with a history of fall with possible syncopal attack. During the hospitalization, the patient was found to have INR high, which was due to her Coumadin intake for her DVT in her right leg. From neurological point of view, I was called in to evaluate her for further management. HISTORY OF PRESENT ILLNESS: The patient is an 83-year-old moderately obese right-handed female who admits that she has been falling many times in two months with no reason. For the last two days prior to the admission, she had another fall in the kitchen with no reason. She got her up and ever since she could not able to move and lift her right leg. She claims that right whole leg is heavy with no feeling on her right leg with pain from her hip down. No complaints on the left side. No history of bowel or bladder incontinence. No history of right arm weakness. No history of speech and swallow involvement or visual dysfunction. No similar episodes happened in the past. No history of urinary incontinence or involuntary movements have been observed. PAST MEDICAL HISTORY: DVT, had been on Coumadin for the last four years, hypertension, obesity, dyslipidemia. SURGICAL HISTORY: Cholecystectomy. ALLERGIES: NO KNOWN ALLERGIES. REVIEW OF SYSTEMS: A 12-point system being reviewed. From neuro, frequent fall and leg weakness. MEDICATION: Vitamin C, B complex, Cozaar, Microzide, morphine, Norvasc, Toprol, Ultram. PHYSICAL EXAMINATION: VITAL SIGNS: Blood pressure 139/58, mean arterial pressure of 85, respiratory rate 18, pulse rate 102, temperature 98.3. NECK: Supple. No carotid bruits. HEART: Sounds tachycardic. No murmur. EXTREMITIES: 3+ pitting edema on the right side, left side as well; however, the right leg is swollen more than the left leg. Stasis dermatitis with hyperemia in both lower extremities, particularly the distal third of her lower extremities. NEUROLOGIC: She is sitting in the chair. She usually sleeps in the recliner. Speech is clear. Naming, repetition, fluency, comprehension all within normal. Cranial nerve: Visual field intact. Pupils reactive to light. Extraocular movement normal. No nystagmus. No facial sensory deficit. No facial asymmetry. Hearing is normal. Tongue is midline. Good gag. Motor: On outstretched hand with eyes closed, no drift noted. No sensory tremor. Muscle strength is symmetric on either side of her upper extremities. Lower extremities, subjective weakness on the right side. She could not able to lift her thigh, not even thigh above her hip level. She can move her toes as well. Deep tendon reflexes, right upper extremities are 3+ to compare with the left side, which is 2+, both knees are absent. Both ankles are absent. Plantars are upgoing on her right side. 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 Posterior column is intact. Coordination: [id number] test is being intact. Gait is deferred at this time. CONCLUSIONS: As per neurological examination, the patient is presenting with left subcortical dysfunction, presenting with frequent fall with weakness on her right side, consistent with left subcortical dysfunction, which probably due to her hypertension, dyslipidemia, obesity with hidden sleep-related breathing disorder; however, the heart sounds are sinus tachycardic, could be paroxysmal atrial fibrillation as well. 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 WORKUP: WBC 7.1, hemoglobin 12.1, hematocrit 35.9, platelet 189. PT 40.9, INR 3.7, PTT 41. Sodium 140, potassium 5, chloride 106, bicarbonate 24, BUN 27, glucose 184. Urinalysis, 2+ hematuria. Her INR was 3.7. CT of the HEAD, no acute pathology is noted. EKG, normal sinus rhythm. RECOMMENDATIONS: 1. Blood workup for hypercoagulable stage and lipid profile. 2. Carotid Doppler/echo/EEG and MRI of the brain and also MRI of the lumbosacral spine. The patient was placed on low dose of aspirin. Continue inhibitor for now. Depending on her lipid profile, statin should be prescribed. 3. Fall precaution with physical therapy at present. When INR is in therapeutic range, resume her Coumadin for now. 4. The patient will be followed closely with you. Robe Vega MD [facility]
[2018-04-11] MEDS: Vitamin B Complex/Vitamin C Tab PO SCH (11:24)
[2018-04-11] MEDS: Metoprolol Succinate 100 mg XL Tab PO SCH (11:24)
--- NOTE | 2018-04-11 12:00 | PN ---
DATE: 04/11/2018 TIME OF EVALUATION: 07:10 a.m. SUBJECTIVE: The patient is awake, sitting in the recliner. Still she is complaining of right leg weakness. Her recommended tests are still pending. The patient does not want to have MRI of the brain at present. The patient's examination, which is unchanged to compare with my previous examination. Her recent blood workup, glucose 120 and INR is still 3.3, which was done yesterday evening. The patient will be followed while she is in the hospital. Robe Vega MD
--- NOTE | 2018-04-11 13:03 | VASCLAB ---
Date of service: 04/10/2018 PROCEDURE: Carotid Duplex Exam. HISTORY: Syncope COMPARISON: None available. TECHNIQUE: Grayscale and duplex Doppler evaluation of the cervical carotid and vertebral arteries were performed. The common carotid, carotid bifurcations and cervical Internal Carotid Artery (ICA) and proximal External Carotid Artery (ECA) were evaluated. The vertebral arteries were evaluated for gross patency and flow direction. Report prepared by Mahesh Kulkarni, BS, RVT FINDINGS: RIGHT CAROTID ARTERIES: 1. Common Carotid Artery: No significant focal plaque formation of the right common carotid artery. Maximum Peak Systolic velocity: 80 cm/sec: End-diastolic velocity 13 cm/sec. 2. Carotid Bifurcation: plaque formation. Maximum Peak Systolic velocity: 67 cm/sec: End-diastolic velocity 12 cm/sec. 3. Internal Carotid Artery: Plaque description: 3.1. Proximal Segment: Peak systolic velocity 96 cm/sec: End-diastolic velocity 23 cm/sec - % stenosis 0-15% 3.2. Middle Segment: Peak systolic velocity 92 cm/sec: End-diastolic velocity 11 cm/sec - % stenosis 0-15% 3.3. Distal Segment: Peak systolic velocity 83 cm/sec: End-diastolic velocity 16 cm/sec - % stenosis 0-15% 4. External Carotid Artery: No significant focal plaque formation. Peak systolic velocity 131 cm/sec 5. ICA/CCA Ratio: 1.2 LEFT CAROTID ARTERIES: 1. Common Carotid Artery: No significant focal plaque formation of the left common carotid artery. Maximum Peak Systolic velocity: 90 cm/sec: End-diastolic velocity 20 cm/sec. 2. Carotid Bifurcation: plaque formation. Maximum Peak Systolic velocity: 73 cm/sec: End-diastolic velocity 14 cm/sec. 3. Internal Carotid Artery: Plaque description: 3.1. Proximal Segment: Peak systolic velocity 109 cm/sec: End-diastolic velocity 22 cm/sec - % stenosis 0-15% 3.2. Middle Segment: Peak systolic velocity 141 cm/sec: End-diastolic velocity 34 cm/sec - % stenosis 0-15% 3.3. Distal Segment: Peak systolic velocity 53 cm/sec: End-diastolic velocity 11 cm/sec - % stenosis 0-15% 4. External Carotid Artery: No significant focal plaque formation. Peak systolic velocity 80 cm/sec 5. ICA/CCA Ratio: 1.6 VERTEBRAL ARTERIES: 1. Right Vertebral Artery: The right vertebral artery flow direction is antegrade. 2. Left Vertebral Artery: The left vertebral artery flow direction is antegrade. OTHER FINDINGS: 1. Right Brachial Blood pressure: mmHg. 2. Left Brachial Blood pressure: mmHg. IMPRESSION: RIGHT: Duplex scan does not suggest hemodynamically significant stenosis of the right extracranial carotid arteries. LEFT: Duplex scan does not suggest hemodynamically significant stenosis of the left extracranial carotid arteries.
--- NOTE | 2018-04-11 13:43 | VASCLAB ---
Date of service: 04/10/2018 PROCEDURE: Lower Extremity Venous Duplex Exam. HISTORY: lower extremity edema PRIORS: None. TECHNIQUE: Bilateral common femoral, femoral, popliteal and posterior tibial, peroneal and great saphenous veins were evaluated. Flow was assessed with color Doppler, compressibility, assessment of phasic flow and augmentation response. Report prepared by Mahesh Kulkarni, ANGELITO, RVT FINDINGS: RIGHT: 1. Common Femoral Vein: 1.1. Compressibility - Fully compressible: Thrombus - None : Flow - Phasic: Augmentation -Normal: Reflux - None. 2. Femoral Vein: 2.1. Compressibility - Fully compressible: Thrombus - None : Flow - Phasic: Augmentation -Normal: Reflux - None. 3. Popliteal Vein: 3.1. Compressibility - Fully compressible: Thrombus - None : Flow - Phasic: Augmentation -Normal: Reflux - None. 4. Posterior Tibial Vein: 4.1. Compressibility - : Thrombus - : Flow - : Augmentation -: Reflux - . 5. Peroneal Vein: 5.1. Compressibility - : Thrombus - : Flow - : Augmentation -: Reflux - . 6. Great Saphenous Vein: 6.1. Compressibility - Fully compressible: Thrombus - None: Flow - Phasic: Augmentation - Normal: Reflux - None. LEFT: 1. Common Femoral Vein: 1.1. Compressibility - Fully compressible: Thrombus - None: Flow - Phasic: Augmentation -Normal: Reflux - None. 2. Femoral Vein: 2.1. Compressibility - Fully compressible: Thrombus - None: Flow - Phasic: Augmentation -Normal: Reflux - None. 3. Popliteal Vein: 3.1. Compressibility - Fully compressible: Thrombus - None : Flow - Phasic: Augmentation -Normal: Reflux - None. 4. Posterior Tibial Vein: 4.1. Compressibility - : Thrombus - : Flow - : Augmentation -: Reflux - . 5. Peroneal Vein: 5.1. Compressibility - : Thrombus - : Flow - : Augmentation -: Reflux - . 6. Great Saphenous Vein: 6.1. Compressibility - Fully compressible: Thrombus - None: Flow - Phasic: Augmentation - Normal: Reflux - None. OTHER FINDINGS: Due to swelling in the calves, bilateral peroneal and posterior tibial vein are not visualized. Impression Right: No evidence of deep or superficial vein thrombosis of the right lower extremity. Normal valve function noted of the right side. Left: No evidence of deep or superficial vein thrombosis of the left lower extremity. Normal valve function noted of the left side.
--- NOTE | 2018-04-11 17:30 | CP.PCM.PN ---
Subjective - Date & Time of Evaluation Date of Evaluation: 04/11/18 Time of Evaluation: 09:00 - Subjective Subjective: clinically same Objective - Vital Signs/Intake and Output Vital Signs (last 24 hours): Temp Pulse Resp BP Pulse Ox 98.2 F 96 H 20 145/81 97 04/10/18 16:35 04/10/18 16:35 04/10/18 16:35 04/10/18 16:35 04/10/18 16:35 - Medications Medications: Current Medications Amlodipine Besylate (Norvasc) 10 mg PO DAILY [facility] Last Admin: 04/11/18 11:23 Dose: 10 mg Aspirin (Ecotrin) 81 mg PO DAILY [facility] Last Admin: 04/11/18 11:26 Dose: 81 mg Ergocalciferol (Drisdol 50,000 Intl Units Cap) 1 cap PO QWK [facility] Last Admin: 04/10/18 10:53 Dose: 1 cap Hydrochlorothiazide (Microzide) 12.5 mg PO DAILY [facility] Last Admin: 04/11/18 11:26 Dose: 12.5 mg Ceftriaxone Sodium 1 gm/ (Sodium Chloride) 100 mls @ 100 mls/hr IVPB DAILY [facility]; Protocol Last Admin: 04/11/18 11:24 Dose: 100 mls/hr Losartan Potassium (Cozaar) 50 mg PO DAILY [facility] Last Admin: 04/11/18 11:23 Dose: 50 mg Metoprolol Succinate (Toprol Xl) 100 mg PO DAILY [facility] Last Admin: 04/11/18 11:24 Dose: 100 mg Morphine Sulfate (Morphine) 2 mg IVP Q6H PRN PRN Reason: Pain, severe (8-10) Last Admin: 04/11/18 02:19 Dose: 2 mg Tramadol HCl (Ultram) 50 mg PO Q6 PRN PRN Reason: Pain, moderate (4-7) Vitamin B Complex/Vitamin C (Berocca) 1 tab PO DAILY [facility] Last Admin: 04/11/18 11:24 Dose: 1 tab - Labs Labs: 04/09/18 11:49 04/09/18 11:49 PT 36.3 SECONDS (9.7-12.2) H 04/10/18 19:43 INR 3.3 04/10/18 19:43 APTT 41 SECONDS (21-34) H 04/10/18 19:43 - Constitutional Appears: Well - Head Exam Head Exam: ATRAUMATIC, NORMAL INSPECTION, NORMOCEPHALIC - Eye Exam Eye Exam: EOMI, Normal appearance, PERRL Pupil Exam: NORMAL ACCOMODATION, PERRL - ENT Exam ENT Exam: Mucous Membranes Moist, Normal Exam - Neck Exam Neck Exam: Full ROM, Normal Inspection. absent: Lymphadenopathy - Respiratory Exam Respiratory Exam: Decreased Breath Sounds - Cardiovascular Exam Cardiovascular Exam: REGULAR RHYTHM, +S1, +S2 - GI/Abdominal Exam GI & Abdominal Exam: Soft, Diminished Bowel Sounds - Rectal Exam Rectal Exam: Deferred
[2018-04-11 17:33] LABS: INR 1.6; PROTHROMBIN TIME 17.5 SECONDS (9.7-12.2)
--- NOTE | 2018-04-11 19:18 | CARD ---
APPROVED REPORT Date of service: 04/11/2018 EXAM: Two-dimensional and M-mode echocardiogram with Doppler and color Doppler. Other Information Quality : GoodRhythm : INDICATION Syncope RISK FACTORS Hypertension Hyperlipidemia 2D DIMENSIONS IVSd1.0 (0.7-1.1cm)LVDd4.3 (3.9-5.9cm) PWd0.9 (0.7-1.1cm)LVDs2.4 (2.5-4.0cm) FS (%) 43.2 %LVEF (%)74.6 (>50%) M-Mode DIMENSIONS Left Atrium (MM)3.93 (2.5-4.0cm)IVSd1.07 (0.7-1.1cm) Aortic Root3.42 (2.2-3.7cm)LVDd5.55 (4.0-5.6cm) Aortic Cusp Exc.2.13 (1.5-2.0cm)PWd0.92 (0.7-1.1cm) FS (%) 40 %LVDs3.31 (2.0-3.8cm) LVEF (%)70 (>50%) Mitral Valve MV E Rrlpyixg18.5cm/sMV A Cupzyzva50.6cm/sE/A ratio0.9 TDI E/Lateral E'0.0E/Medial E'0.0 Tricuspid Valve TR Peak Rfiyxpyj989or/sTR Peak [id number] <Conclusion> poor window. normal size la,lv & ra rv. normal lv wall motion,thickness systolic & diastolic funciton with lvef of more than 70%. sclerotic trileaflet aortic valve. normal mitral,tv & pv. trace mr,mild tr & ai with mildly elevated pulmonary systolic pressures of 39 mm of hg. normal size sclerotic aortic root. no pericrdial effusion.
[2018-04-12 07:33] LABS: BASO # 0.1 K/uL (0.0-0.2); BASO % 0.7 % (0.0-2.0); EOS # 0.3 K/uL (0.0-0.7); HEMOGLOBIN 12.1 g/dL (11.0-16.0); LYMPH % 22.8 % (20.0-40.0); MEAN CELL VOLUME 97.2 fL (81.0-99.0); MEAN CORPUSCULAR HEMOGLOBIN 33.3 pg (27.0-31.0); MEAN CORPUSCULAR HGB CONC 34.2 g/dL (33.0-37.0); MEAN PLATELET VOLUME 8.7 fL (7.2-11.7); MONO % 11.1 % (0.0-10.0); NEUT # 5.4 K/uL (1.8-7.0); NEUT % 62.4 % (50.0-75.0); RBC 3.64 Mil/uL (3.80-5.20); RED CELL DISTRIBUTION WIDTH 14.4 % (11.5-14.5); WHITE BLOOD COUNT 8.7 K/uL (4.8-10.8)
[2018-04-12 07:50] LABS: ALB/GLOB RATIO 1.2 (1.0-2.1); CALCIUM 9.6 mg/dl (8.6-10.4)
[2018-04-12] MEDS: Vitamin B Complex/Vitamin C Tab PO SCH (09:35)
[2018-04-12] MEDS: Metoprolol Succinate 100 mg XL Tab PO SCH (09:36)
--- NOTE | 2018-04-12 11:22 | CP.PCM.PN ---
Subjective - Date & Time of Evaluation Date of Evaluation: 04/12/18 Time of Evaluation: 11:22 - Subjective Subjective: Orthopedic progress note: Dr. Power Patient seen and examined OOB to chair comfortable. Pain is well controlled. C/o mild soreness to R groin with ambulation. No other complaints. Denies CP/SOB/N/V/D/fever. Objective - Vital Signs/Intake and Output Vital Signs (last 24 hours): Temp Pulse Resp BP Pulse Ox 97.4 F L 74 20 105/69 100 04/12/18 07:57 04/12/18 07:57 04/12/18 07:57 04/12/18 07:57 04/12/18 07:57 - Medications Medications: Current Medications Amlodipine Besylate (Norvasc) 10 mg PO DAILY [facility] Last Admin: 04/12/18 09:36 Dose: 10 mg Aspirin (Ecotrin) 81 mg PO DAILY [facility] Last Admin: 04/12/18 09:36 Dose: 81 mg Ergocalciferol (Drisdol 50,000 Intl Units Cap) 1 cap PO QWK [facility] Last Admin: 04/10/18 10:53 Dose: 1 cap Hydrochlorothiazide (Microzide) 12.5 mg PO DAILY [facility] Last Admin: 04/12/18 09:35 Dose: 12.5 mg Ceftriaxone Sodium 1 gm/ (Sodium Chloride) 100 mls @ 100 mls/hr IVPB DAILY [facility]; Protocol Last Admin: 04/12/18 10:43 Dose: 100 mls/hr Losartan Potassium (Cozaar) 50 mg PO DAILY [facility] Last Admin: 04/12/18 09:36 Dose: 50 mg Metoprolol Succinate (Toprol Xl) 100 mg PO DAILY [facility] Last Admin: 04/12/18 09:36 Dose: 100 mg Morphine Sulfate (Morphine) 2 mg IVP Q6H PRN PRN Reason: Pain, severe (8-10) Last Admin: 04/11/18 02:19 Dose: 2 mg Tramadol HCl (Ultram) 50 mg PO Q6 PRN PRN Reason: Pain, moderate (4-7) Last Admin: 04/12/18 09:38 Dose: 50 mg Vitamin B Complex/Vitamin C (Berocca) 1 tab PO DAILY [facility] Last Admin: 04/12/18 09:35 Dose: 1 tab - Labs Labs: 04/12/18 07:23 04/12/18 07:23 PT 17.5 SECONDS (9.7-12.2) H D 04/11/18 17:16 INR 1.6 D 04/11/18 17:16 APTT 33 SECONDS (21-34) D 04/11/18 17:16 - Extremities Exam Additional comments: R hip: no tenderness at lateral hip or groin no swelling or lesions pitting edema b/l sensation intact SP/DP/TN motor intact EHL/FHL/TA/G pedal pulses intact comps soft NT Assessment and Plan (1) Stress fracture of right hip Assessment & Plan: -Patient has refused MRI of right hip and CT of pelvis -Our recommendation is to treat as if there is an occult fracture of the right hip -Start conservative management, patient refuses any surgical intervention -PT/OT NWB RLE with walker -pain control -Consult appreciated, please reconsult as needed -f/u in the office 2 weeks post discharge -above d/w Dr. Power in agreement Status: Acute
--- NOTE | 2018-04-12 18:20 | CP.PCM.CON ---
History of Present Illness - History of Present Illness History of Present Illness: 83 year old female, with PMHx of diabetes, presents to the emergency department with complaints of pain to the right hip since yesterday status post fall. X ray so far negative but MRI is pending Patient states she fell at home and felt dizzy, associated with headache. Patient takes coumadin. C/O new rash on lower extremities bilaterally along withg swelling and left hip pain Debies fever or chills - Medical History PMH: Deep Vein Thrombosis (left leg), HTN, Hypercholesterolemia, Hyperlipidemia Denies: Depression, HIV, Chronic Kidney Disease Surgical History: Cholecystectomy Review of Systems - Review of Systems All systems: reviewed and no additional remarkable complaints except - Constitutional Constitutional: As Per HPI - EENT Eyes: absent: As Per HPI, Blind Spots, Blurred Vision, Change in Vision, Decreased Night Vision, Diplopia, Discharge, Dry Eye, Exophthalmos, Floaters, Irritation, Itchy Eyes, Loss of Peripheral Vision, Pain, Photophobia, Requires Corrective Lenses, Sees Flashes, Spots in Vision, Tunnel Vision, Other Visual Disturbances, Loss of Vision, Other Ears: absent: As Per HPI, Decreased Hearing, Ear Discharge, Ear Pain, Tinnitus, Abnormal Hearing, Disequilibrium, Dizziness, Other Nose/Mouth/Throat: absent: As Per HPI, Epistaxis, Nasal Congestion, Nasal Discharge, Nasal Obstruction, Nasal Trauma, Nose Pain, Post Nasal Drip, Sinus Pain, Sinus Pressure, Bleeding Gums, Change in Voice, Dental Pain, Dry Mouth, Dysphagia, Halitosis, Hoarsness, Lip Swelling, Mouth Lesions, Mouth Pain, Odynophagia, Sore Throat, Throat Swelling, Tongue Swelling, Facial Pain, Neck Pain, Neck Mass, Other - Breasts Breasts: absent: As Per HPI, Change in Shape, Mass, Pain, Nipple Discharge, Nipple Inversion, Skin Changes, Swelling, Other - Cardiovascular Cardiovascular: As Per HPI - Respiratory Respiratory: absent: As Per HPI, Cough, Dyspnea, Hemoptysis, Dyspnea on Exertion, Wheezing, Snoring, Stridor, Pain on Inspiration, Chest Congestion, Excessive Mucous Production, Change in Mucous Color, Pain with Coughing, Other - Gastrointestinal Gastrointestinal: absent: As Per HPI, Abdominal Pain, Belching, Bloating, Change in Bowel Habits, Change in Stool Character, Coffee Ground Emesis, Constipation, Cramping, Diarrhea, Dyspepsia, Dysphagia, Early Satiety, Excessive Flatus, Fecal Incontinence, Heartburn, Hematemesis, Hematochezia, Loose Stools, Melena, Nausea, Odynophagia, Temesmus, Vomiting, Other - Genitourinary Genitourinary: absent: As Per HPI, Change in Urinary Stream, Difficulty Urinating, Dysuria, Flank Pain, Hematuria, Pyuria, Nocturia, Urinary Incontinence, Urinary Frequency, Urinary Hesitance, Urinary Urgency, Voiding Freq/Small Amts, Freq UTI, Hx Renal/Bladder Calculi, Hx /Renal Surgery, Bladder Distension, Other - Reproductive: Female Reproductive:Female: absent: As Per HPI, Amenorrhea, Amenorrhea/ Control, Currently Menstual, Cycle <21 Days, Cycle >35 Days, Cycle Variable, Menses 1-7 Days, Menses >/= 8 Days, Menses Variable, Cycle > 4 Weeks Between, No Menses for 6 Months, Heavy Menses, Light Menses, Normal Menses, Spotting Between Cycles, S/P Hysterectomy, Menopausal, Post Menopausal, Premenarche, Abnormal Vaginal Bleeding, Dysmenorrhea, Dyspareunia, Genital Lesions, Genital Pruritis, Pelvic Pain, Prolapse Symptoms, Sexual Dysfunction, Vaginal Discharge, Vaginal Dryness, Vaginal Odor, Vaginal Pruritis, Other - Menstruation Menstruation: absent: As Per HPI, Amenorrhea, Amenorrhea/ Control, Currently Menstual, Cycle <21 Days, Cycle >35 Days, Cycle Variable, Menses 1-7 Days, Menses >/= 8 Days, Menses Variable, Cycle > 4 Weeks Between, No Menses for 6 Months, Heavy Menses, Light Menses, Normal Menses, Spotting Between Cycles, S/P Hysterectomy, Menopausal, Post Menopausal, Premenarche, Abnormal Vaginal Bleeding, Dysmenorrhea, Other - Musculoskeletal Musculoskeletal: As Per HPI - Integumentary Integumentary: As Per HPI, Skin Pain - Neurological Neurological: absent: As Per HPI, Abnormal Gait, Abnormal Hearing, Abnormal Movements, Abnormal Speech, Behavioral Changes, Burning Sensations, Confusion, Convulsions, Disequilibrium, Dizziness, Numbness, Focal Weakness, Frequent Falls, Headaches, Lack of Coordination, Loss of Vision, Memory Loss, Paresthesias, Radicular Pain, Restless Legs, Sensory Deficit, Syncope, Tingling, Tremor, Vertigo, Weakness, Other Visual Disturbances, Other - Psychiatric Psychiatric: absent: As Per HPI, Abnormal Sleep Pattern, Anhedonia, Anxiety, Auditory Hallucinations, Behavioral Changes, Change in Appetite, Change in Libido, Confusion, Depression, Difficulty Concentrating, Hallucinations, Homicidal Ideation, Hopelessness, Irritability, Memory Loss, Mood Swings, Panic Attacks, Paranoia, Suicidal Ideation, Visual Hallucinations, Tactile Hallucinations, Other - Endocrine Endocrine: absent: As Per HPI, Change in Body Appearance, Change in Libido, Cold Intolorance, Deepening of Voice, Excessive Sweating, Fatigue, Flushing, Heat Intolorance, Increase in Ring/Shoe/Hat Size, Palpitations, Polydipsia, Polyphagia, Polyuria, Other - Hematologic/Lymphatic Hematologic: absent: As Per HPI, Easy Bleeding, Easy Bruising, Lymphadenopathy, Other Past Patient History - Infectious Disease Hx of Infectious Diseases: None - Tetanus Immunizations Tetanus Immunization: Unknown - Past Medical History & Family History Past Medical History?: Yes - Past Social History Smoking Status: Never Smoked - CARDIAC Hx Hypercholesterolemia: Yes Hx Hypertension: Yes - PULMONARY Hx Respiratory Disorders: No - NEUROLOGICAL Hx Neurological Disorder: No - HEENT Hx HEENT Problems: No - RENAL Hx Chronic Kidney Disease: No - ENDOCRINE/METABOLIC Hx Endocrine Disorders: No - HEMATOLOGICAL/ONCOLOGICAL Hx Human Immunodeficiency Virus (HIV): No - INTEGUMENTARY Hx Dermatological Problems: No - MUSCULOSKELETAL/RHEUMATOLOGICAL Hx Falls: Yes - GASTROINTESTINAL Hx Gastrointestinal Disorders: No - GENITOURINARY/GYNECOLOGICAL Hx Genitourinary Disorders: No - PSYCHIATRIC Hx Depression: No Hx Substance Use: No - SURGICAL HISTORY Hx Cholecystectomy: Yes - ANESTHESIA Hx Anesthesia: Yes Hx Anesthesia Reactions: No Hx Malignant Hyperthermia: No Meds Allergies/Adverse Reactions: Allergies Allergy/AdvReac Type Severity Reaction Status Date / Time No Known Allergies Allergy Verified 04/09/18 11:11 - Medications Medications: Current Medications Amlodipine Besylate (Norvasc) 10 mg PO DAILY [facility] Last Admin: 04/12/18 09:36 Dose: 10 mg Aspirin (Ecotrin) 81 mg PO DAILY [facility] Last Admin: 04/12/18 09:36 Dose: 81 mg Ergocalciferol (Drisdol 50,000 Intl Units Cap) 1 cap PO QWK [facility] Last Admin: 04/10/18 10:53 Dose: 1 cap Hydrochlorothiazide (Microzide) 12.5 mg PO DAILY [facility] Last Admin: 04/12/18 09:35 Dose: 12.5 mg Ceftriaxone Sodium 1 gm/ (Sodium Chloride) 100 mls @ 100 mls/hr IVPB DAILY [facility]; Protocol Last Admin: 04/12/18 10:43 Dose: 100 mls/hr Losartan Potassium (Cozaar) 50 mg PO DAILY [facility] Last Admin: 04/12/18 09:36 Dose: 50 mg Metoprolol Succinate (Toprol Xl) 100 mg PO DAILY [facility] Last Admin: 04/12/18 09:36 Dose: 100 mg Morphine Sulfate (Morphine) 2 mg IVP Q6H PRN PRN Reason: Pain, severe (8-10) Last Admin: 04/11/18 02:19 Dose: 2 mg Tramadol HCl (Ultram) 50 mg PO Q6 PRN PRN Reason: Pain, moderate (4-7) Last Admin: 04/12/18 09:38 Dose: 50 mg Vitamin B Complex/Vitamin C (Berocca) 1 tab PO DAILY [facility] Last Admin: 04/12/18 09:35 Dose: 1 tab Physical Exam - Constitutional Appears: Non-toxic, Chronically Ill - Head Exam Head Exam: NORMOCEPHALIC - Eye Exam Eye Exam: PERRL. absent: Scleral icterus - ENT Exam ENT Exam: Mucous Membranes Dry - Neck Exam Neck exam: Negative for: Lymphadenopathy - Respiratory Exam Respiratory Exam: Decreased Breath Sounds, Clear to Auscultation Bilateral - Cardiovascular Exam Cardiovascular Exam: REGULAR RHYTHM, +S1, +S2 - GI/Abdominal Exam GI & Abdominal Exam: Diminished Bowel Sounds, Soft. absent: Tenderness - Rectal Exam Rectal Exam: Deferred - Exam Exam: NORMAL INSPECTION - Extremities Exam Extremities exam: Positive for: pedal edema, tenderness, pedal pulses present. Negative for: calf tenderness Additional comments: redness both lower legs / irregular good pulses - Back Exam Back exam: absent: CVA tenderness (L), CVA tenderness (R) - Neurological Exam Neurological exam: Alert, CN II-XII Intact, Oriented x3, Reflexes Normal - Psychiatric Exam Psychiatric exam: Normal Mood - Skin Skin Exam: Dry, Erythema Results - Vital Signs Recent Vital Signs: Last Vital Signs Temp 98.5 F 04/12/18 15:52 Pulse 69 04/12/18 15:52 Resp 20 09/26/18 15:52 BP 116/70 04/12/18 15:52 Pulse Ox 96 04/12/18 15:52 - Labs Result Diagrams: 04/12/18 07:23 04/12/18 07:23 Labs: Laboratory Results - last 24 hr 04/12/18 04/12/18 04/12/18 06:28 07:23 07:23 WBC 8.7 RBC 3.64 L Hgb 12.1 Hct 35.4 MCV 97.2 MCH 33.3 H MCHC 34.2 RDW 14.4 Plt Count 214 MPV 8.7 Neut % (Auto) 62.4 Lymph % (Auto) 22.8 Harris % (Auto) 11.1 H Eos % (Auto) 3.0 Baso % (Auto) 0.7 Neut # (Auto) 5.4 Lymph # (Auto) 2.0 Harris # (Auto) 1.0 H Eos # (Auto) 0.3 Baso # (Auto) 0.1 Sodium 141 Potassium 4.1 Chloride 104 Carbon Dioxide 29 Anion Gap 13 BUN 32 H Creatinine 1.2 Est GFR ( Amer) 52 Est GFR (Non-Af Amer) 43 POC Glucose (mg/dL) 152 H Random Glucose 118 H Calcium 9.6 Total Bilirubin 0.8 AST 89 H D ALT 95 H D Alkaline Phosphatase 109 Total Protein 7.2 Albumin 4.0 Globulin 3.3 Albumin/Globulin Ratio 1.2 04/12/18 04/12/18 11:07 15:51 WBC RBC Hgb Hct MCV MCH MCHC RDW Plt Count MPV Neut % (Auto) Lymph % (Auto) Harris % (Auto) Eos % (Auto) Baso % (Auto) Neut # (Auto) Lymph # (Auto) Harris # (Auto) Eos # (Auto) Baso # (Auto) Sodium Potassium Chloride Carbon Dioxide Anion Gap BUN Creatinine Est GFR ( Amer) Est GFR (Non-Af Amer) POC Glucose (mg/dL) 126 H 171 H Random Glucose Calcium Total Bilirubin AST ALT Alkaline Phosphatase Total Protein Albumin Globulin Albumin/Globulin Ratio Assessment & Plan (1) Cellulitis Status: Acute (2) Degenerative joint disease of right hip Status: Acute (3) Hip pain, right Status: Acute (4) Essential hypertension Status: Acute (5) Fall Status: Acute - Assessment and Plan (Free Text) Assessment: blood c/s- coag neg staph possible contaminant ? will repeat consider echo add Vanco IV
--- NOTE | 2018-04-12 18:28 | CP.PCM.PN ---
Subjective - Date & Time of Evaluation Date of Evaluation: 04/12/18 Time of Evaluation: 08:45 - Subjective Subjective: clinically same Objective - Vital Signs/Intake and Output Vital Signs (last 24 hours): Temp Pulse Resp BP Pulse Ox 98.5 F 69 20 116/70 96 04/12/18 15:52 04/12/18 15:52 04/12/18 15:52 04/12/18 15:52 04/12/18 15:52 - Medications Medications: Current Medications Amlodipine Besylate (Norvasc) 10 mg PO DAILY [facility] Last Admin: 04/12/18 09:36 Dose: 10 mg Aspirin (Ecotrin) 81 mg PO DAILY [facility] Last Admin: 04/12/18 09:36 Dose: 81 mg Ergocalciferol (Drisdol 50,000 Intl Units Cap) 1 cap PO QWK [facility] Last Admin: 04/10/18 10:53 Dose: 1 cap Hydrochlorothiazide (Microzide) 12.5 mg PO DAILY [facility] Last Admin: 04/12/18 09:35 Dose: 12.5 mg Ceftriaxone Sodium 1 gm/ (Sodium Chloride) 100 mls @ 100 mls/hr IVPB DAILY [facility]; Protocol Last Admin: 04/12/18 10:43 Dose: 100 mls/hr Vancomycin HCl 1,000 mg/ (Sodium Chloride) 250 mls @ 166.6 mls/hr IVPB Q12H [facility]; Protocol Losartan Potassium (Cozaar) 50 mg PO DAILY [facility] Last Admin: 04/12/18 09:36 Dose: 50 mg Metoprolol Succinate (Toprol Xl) 100 mg PO DAILY [facility] Last Admin: 04/12/18 09:36 Dose: 100 mg Morphine Sulfate (Morphine) 2 mg IVP Q6H PRN PRN Reason: Pain, severe (8-10) Last Admin: 04/11/18 02:19 Dose: 2 mg Tramadol HCl (Ultram) 50 mg PO Q6 PRN PRN Reason: Pain, moderate (4-7) Last Admin: 04/12/18 09:38 Dose: 50 mg Vitamin B Complex/Vitamin C (Berocca) 1 tab PO DAILY [facility] Last Admin: 04/12/18 09:35 Dose: 1 tab - Labs Labs: 04/12/18 07:23 04/12/18 07:23 PT 17.5 SECONDS (9.7-12.2) H D 04/11/18 17:16 INR 1.6 D 04/11/18 17:16 APTT 33 SECONDS (21-34) D 04/11/18 17:16
[2018-04-12] MEDS: Vancomycin 1 gm/NS 200 ml 1 GM/200 ML BAG IVPB SCH (19:50)
[2018-04-13] MEDS: Vancomycin 1 gm/NS 200 ml 1 GM/200 ML BAG IVPB SCH ×2 (06:19→18:45)
[2018-04-13 08:10] LABS: BASO # 0.1 K/uL (0.0-0.2); EOS # 0.3 K/uL (0.0-0.7); LYMPH % 24.3 % (20.0-40.0); MEAN CELL VOLUME 96.2 fL (81.0-99.0); MEAN CORPUSCULAR HEMOGLOBIN 32.5 pg (27.0-31.0); MEAN CORPUSCULAR HGB CONC 33.8 g/dL (33.0-37.0); MEAN PLATELET VOLUME 8.2 fL (7.2-11.7); MONO # 0.8 K/uL (0.0-0.8); MONO % 10.2 % (0.0-10.0); NEUT # 4.9 K/uL (1.8-7.0); NEUT % 60.5 % (50.0-75.0); RBC 3.68 Mil/uL (3.80-5.20); WHITE BLOOD COUNT 8.2 K/uL (4.8-10.8)
[2018-04-13 08:14] LABS: ALB/GLOB RATIO 1.2 (1.0-2.1); ALBUMIN 3.6 g/dL (3.5-5.0); ALT/SGPT 75 U/L (9-52); AST/SGOT 63 U/L (14-36); BLOOD UREA NITROGEN 35 mg/dL (7-17); CALCIUM 9.1 mg/dl (8.6-10.4); GFR NON-AFRICAN AMERICAN 53
[2018-04-13 08:38] LABS: HEPATITIS B SURFACE AG Negative (NEGATIVE)
[2018-04-13 08:43] LABS: HEPATITIS A IGM NEGATIVE (NEGATIVE)
[2018-04-13 08:44] LABS: HEPATITIS B CORE AB NEGATIVE (NEGATIVE)
[2018-04-13 08:55] LABS: HEPATITIS C ANTIBODY NEGATIVE (NEGATIVE)
[2018-04-13] MEDS: Vitamin B Complex/Vitamin C Tab PO SCH (10:57)
[2018-04-13] MEDS: Metoprolol Succinate 100 mg XL Tab PO SCH (10:58)
--- NOTE | 2018-04-13 16:17 | CP.PCM.PN ---
Subjective - Date & Time of Evaluation Date of Evaluation: 04/13/18 Time of Evaluation: 09:00 - Subjective Subjective: clinically same Objective - Vital Signs/Intake and Output Vital Signs (last 24 hours): Temp Pulse Resp BP Pulse Ox 97.4 F L 86 20 128/78 96 04/13/18 07:05 04/13/18 07:05 04/13/18 07:05 04/13/18 07:05 04/13/18 07:05 Intake and Output: 04/13/18 04/13/18 06:59 18:59 Intake Total 440 360 Output Total 2 Balance 438 360 - Medications Medications: Current Medications Amlodipine Besylate (Norvasc) 10 mg PO DAILY [facility] Last Admin: 04/13/18 10:58 Dose: 10 mg Aspirin (Ecotrin) 81 mg PO DAILY [facility] Last Admin: 04/13/18 10:58 Dose: 81 mg Ergocalciferol (Drisdol 50,000 Intl Units Cap) 1 cap PO QWK [facility] Last Admin: 04/10/18 10:53 Dose: 1 cap Hydrochlorothiazide (Microzide) 12.5 mg PO DAILY [facility] Last Admin: 04/13/18 10:57 Dose: 12.5 mg Ceftriaxone Sodium 1 gm/ (Sodium Chloride) 100 mls @ 100 mls/hr IVPB DAILY [facility]; Protocol Last Admin: 04/13/18 10:57 Dose: 100 mls/hr Vancomycin/Sodium Chloride (Vancomycin 1 Gm/Ns 200 Ml) 1 gm in 200 mls @ 133 mls/hr IVPB Q12H [facility]; Protocol Stop: 04/17/18 19:01 Last Admin: 04/13/18 06:19 Dose: 133 mls/hr Losartan Potassium (Cozaar) 50 mg PO DAILY [facility] Last Admin: 04/13/18 10:57 Dose: 50 mg Metoprolol Succinate (Toprol Xl) 100 mg PO DAILY [facility] Last Admin: 04/13/18 10:58 Dose: 100 mg Morphine Sulfate (Morphine) 2 mg IVP Q6H PRN PRN Reason: Pain, severe (8-10) Last Admin: 04/13/18 08:34 Dose: 2 mg Tramadol HCl (Ultram) 50 mg PO Q6 PRN PRN Reason: Pain, moderate (4-7) Last Admin: 04/12/18 09:38 Dose: 50 mg Vitamin B Complex/Vitamin C (Berocca) 1 tab PO DAILY [facility] Last Admin: 04/13/18 10:57 Dose: 1 tab - Labs Labs: 04/13/18 07:51 04/13/18 07:51 PT 17.5 SECONDS (9.7-12.2) H D 04/11/18 17:16 INR 1.6 D 04/11/18 17:16 APTT 33 SECONDS (21-34) D 04/11/18 17:16 - Constitutional Appears: Well - Head Exam Head Exam: ATRAUMATIC, NORMAL INSPECTION, NORMOCEPHALIC - Eye Exam Eye Exam: EOMI, Normal appearance, PERRL Pupil Exam: NORMAL ACCOMODATION, PERRL - ENT Exam ENT Exam: Mucous Membranes Moist, Normal Exam - Neck Exam Neck Exam: Full ROM, Normal Inspection. absent: Lymphadenopathy - Respiratory Exam Respiratory Exam: Decreased Breath Sounds - Cardiovascular Exam Cardiovascular Exam: REGULAR RHYTHM, +S1, +S2 - GI/Abdominal Exam GI & Abdominal Exam: Soft, Diminished Bowel Sounds - Rectal Exam Rectal Exam: Deferred
--- NOTE | 2018-04-13 18:34 | CP.PCM.PN ---
Subjective - Date & Time of Evaluation Date of Evaluation: 04/13/18 Time of Evaluation: 08:00 - Subjective Subjective: c/o pain in legs awake alert repeat blood c/s pending Objective - Vital Signs/Intake and Output Vital Signs (last 24 hours): Temp Pulse Resp BP Pulse Ox 98 F 72 20 100/58 L 98 04/13/18 15:00 04/13/18 15:00 04/13/18 15:00 04/13/18 15:00 04/13/18 15:00 Intake and Output: 04/13/18 04/13/18 06:59 18:59 Intake Total 440 360 Output Total 2 Balance 438 360 - Medications Medications: Current Medications Amlodipine Besylate (Norvasc) 10 mg PO DAILY [facility] Last Admin: 04/13/18 10:58 Dose: 10 mg Aspirin (Ecotrin) 81 mg PO DAILY [facility] Last Admin: 04/13/18 10:58 Dose: 81 mg Ergocalciferol (Drisdol 50,000 Intl Units Cap) 1 cap PO QWK [facility] Last Admin: 04/10/18 10:53 Dose: 1 cap Hydrochlorothiazide (Microzide) 12.5 mg PO DAILY [facility] Last Admin: 04/13/18 10:57 Dose: 12.5 mg Ceftriaxone Sodium 1 gm/ (Sodium Chloride) 100 mls @ 100 mls/hr IVPB DAILY [facility]; Protocol Last Admin: 04/13/18 10:57 Dose: 100 mls/hr Vancomycin/Sodium Chloride (Vancomycin 1 Gm/Ns 200 Ml) 1 gm in 200 mls @ 133 mls/hr IVPB Q12H [facility]; Protocol Stop: 04/17/18 19:01 Last Admin: 04/13/18 06:19 Dose: 133 mls/hr Losartan Potassium (Cozaar) 50 mg PO DAILY [facility] Last Admin: 04/13/18 10:57 Dose: 50 mg Metoprolol Succinate (Toprol Xl) 100 mg PO DAILY [facility] Last Admin: 04/13/18 10:58 Dose: 100 mg Morphine Sulfate (Morphine) 2 mg IVP Q6H PRN PRN Reason: Pain, severe (8-10) Last Admin: 04/13/18 08:34 Dose: 2 mg Tramadol HCl (Ultram) 50 mg PO Q6 PRN PRN Reason: Pain, moderate (4-7) Last Admin: 04/13/18 17:41 Dose: 50 mg Vitamin B Complex/Vitamin C (Berocca) 1 tab PO DAILY [facility] Last Admin: 04/13/18 10:57 Dose: 1 tab - Labs Labs: 04/13/18 07:51 04/13/18 07:51 PT 17.5 SECONDS (9.7-12.2) H D 04/11/18 17:16 INR 1.6 D 04/11/18 17:16 APTT 33 SECONDS (21-34) D 04/11/18 17:16 - Constitutional Appears: Non-toxic, Chronically Ill - Head Exam Head Exam: NORMOCEPHALIC - Eye Exam Eye Exam: PERRL - ENT Exam ENT Exam: Mucous Membranes Dry - Neck Exam Neck Exam: absent: Lymphadenopathy - Respiratory Exam Respiratory Exam: Decreased Breath Sounds - Cardiovascular Exam Cardiovascular Exam: REGULAR RHYTHM - GI/Abdominal Exam GI & Abdominal Exam: Distended - Rectal Exam Rectal Exam: Deferred - Exam Exam: NORMAL INSPECTION - Extremities Exam Extremities Exam: Pedal Edema, Tenderness - Back Exam Back Exam: absent: CVA tenderness (L), CVA tenderness (R) Assessment and Plan (1) Cellulitis Status: Acute (2) Degenerative joint disease of right hip Status: Acute (3) Hip pain, right Status: Acute (4) Essential hypertension Status: Acute (5) Fall Status: Acute - Assessment and Plan (Free Text) Assessment: coag neg staph in blood IV rx in progress cont rx cellulitis consider vascular eval - arterial and venous dopplers
[2018-04-14] MEDS: Vancomycin 1 gm/NS 200 ml 1 GM/200 ML BAG IVPB SCH ×3 (07:45→19:11)
[2018-04-14] MEDS: Vitamin B Complex/Vitamin C Tab PO SCH (09:35)
--- NOTE | 2018-04-14 09:37 | CP.PCM.PN ---
Subjective - Date & Time of Evaluation Date of Evaluation: 04/14/18 Time of Evaluation: : - Subjective Subjective: Patient refuses to "hop" says it hurts her leg and her back. Explained to patient in detail that she needs to proceed with MRI of her hip in order to rule out a fracture, and then it may not be necessary to hop, that the NWB recommendation is only because she refused MRI and we can not see if there is an occult fracture. Patient states that she can not stay still for exam and requests pain medication during exam. Explained to patient she can be given her pain medication prior to exam. Patient still doesn't not agree to imaging. Review of Systems - Review of Systems All systems: reviewed and no additional remarkable complaints except - Musculoskeletal Musculoskeletal: As Par HPI Objective - Vital Signs/Intake and Output Vital Signs (last 24 hours): Temp Pulse Resp BP Pulse Ox 97.5 F L 69 20 118/68 98 04/14/18 07:00 04/14/18 07:00 04/14/18 07:00 04/14/18 07:00 04/14/18 07:00 Intake and Output: 04/14/18 04/14/18 06:59 18:59 Intake Total 600 Balance 600 - Medications Medications: Current Medications Amlodipine Besylate (Norvasc) 10 mg PO DAILY [facility] Last Admin: 04/13/18 10:58 Dose: 10 mg Aspirin (Ecotrin) 81 mg PO DAILY [facility] Last Admin: 04/13/18 10:58 Dose: 81 mg Ergocalciferol (Drisdol 50,000 Intl Units Cap) 1 cap PO QWK [facility] Last Admin: 04/10/18 10:53 Dose: 1 cap Hydrochlorothiazide (Microzide) 12.5 mg PO DAILY [facility] Last Admin: 04/13/18 10:57 Dose: 12.5 mg Ceftriaxone Sodium 1 gm/ (Sodium Chloride) 100 mls @ 100 mls/hr IVPB DAILY [facility]; Protocol Last Admin: 04/13/18 10:57 Dose: 100 mls/hr Vancomycin/Sodium Chloride (Vancomycin 1 Gm/Ns 200 Ml) 1 gm in 200 mls @ 133 mls/hr IVPB Q12H [facility]; Protocol Stop: 04/17/18 19:01 Last Admin: 04/14/18 08:08 Dose: 133 mls/hr Losartan Potassium (Cozaar) 50 mg PO DAILY [facility] Last Admin: 04/13/18 10:57 Dose: 50 mg Metoprolol Succinate (Toprol Xl) 100 mg PO DAILY [facility] Last Admin: 04/13/18 10:58 Dose: 100 mg Morphine Sulfate (Morphine) 2 mg IVP Q6H PRN PRN Reason: Pain, severe (8-10) Last Admin: 04/13/18 08:34 Dose: 2 mg Tramadol HCl (Ultram) 50 mg PO Q6 PRN PRN Reason: Pain, moderate (4-7) Last Admin: 04/13/18 17:41 Dose: 50 mg Vitamin B Complex/Vitamin C (Berocca) 1 tab PO DAILY [facility] Last Admin: 04/13/18 10:57 Dose: 1 tab - Labs Labs: 04/13/18 07:51 04/13/18 07:51 PT 17.5 SECONDS (9.7-12.2) H D 04/11/18 17:16 INR 1.6 D 04/11/18 17:16 APTT 33 SECONDS (21-34) D 04/11/18 17:16 - Constitutional Appears: Well, No Acute Distress - Extremities Exam Additional comments: sensation intact calves soft NT neg homans continued redness to legs, improved since prior exam - Neurological Exam Neurological Exam: Alert, Awake, Oriented x3 Neuro motor strength exam: Left Lower Extremity: 5, Right Lower Extremity: 4 (no change since prior exam) - Psychiatric Exam Psychiatric exam: Normal Affect, Normal Mood - Skin Skin Exam: Dry, Intact, Normal Color, Warm Assessment and Plan (1) Degenerative joint disease of right hip Assessment & Plan: patient refused further imaging NWB RLE to protect hip as can not rule out occult fx as per Dr. Power dopplers neg DVT however B peroneal and posterior tibial veins are not visualized due to edema cont PT/OT d/w Dr. Power, agrees with above Status: Acute (2) Hip pain, right Status: Acute (3) Spondylolysis of lumbar region Status: Acute
--- NOTE | 2018-04-14 10:42 | CP.PCM.PN ---
Subjective - Date & Time of Evaluation Date of Evaluation: 04/14/18 Time of Evaluation: 09:30 - Subjective Subjective: clinically same Objective - Vital Signs/Intake and Output Vital Signs (last 24 hours): Temp Pulse Resp BP Pulse Ox 97.5 F L 69 20 151/71 H 98 04/14/18 07:00 04/14/18 07:00 04/14/18 07:00 04/14/18 09:35 04/14/18 07:00 Intake and Output: 04/14/18 04/14/18 06:59 18:59 Intake Total 600 Balance 600 - Medications Medications: Current Medications Amlodipine Besylate (Norvasc) 10 mg PO DAILY [facility] Last Admin: 04/14/18 09:37 Dose: 10 mg Aspirin (Ecotrin) 81 mg PO DAILY [facility] Last Admin: 04/14/18 09:35 Dose: 81 mg Ergocalciferol (Drisdol 50,000 Intl Units Cap) 1 cap PO QWK [facility] Last Admin: 04/10/18 10:53 Dose: 1 cap Hydrochlorothiazide (Microzide) 12.5 mg PO DAILY [facility] Last Admin: 04/13/18 10:57 Dose: 12.5 mg Ceftriaxone Sodium 1 gm/ (Sodium Chloride) 100 mls @ 100 mls/hr IVPB DAILY [facility]; Protocol Last Admin: 04/14/18 09:35 Dose: 100 mls/hr Vancomycin/Sodium Chloride (Vancomycin 1 Gm/Ns 200 Ml) 1 gm in 200 mls @ 133 mls/hr IVPB Q12H [facility]; Protocol Stop: 04/17/18 19:01 Last Admin: 04/14/18 08:08 Dose: 133 mls/hr Losartan Potassium (Cozaar) 50 mg PO DAILY [facility] Last Admin: 04/14/18 09:37 Dose: 50 mg Metoprolol Succinate (Toprol Xl) 100 mg PO DAILY [facility] Last Admin: 04/13/18 10:58 Dose: 100 mg Morphine Sulfate (Morphine) 2 mg IVP Q6H PRN PRN Reason: Pain, severe (8-10) Last Admin: 04/13/18 08:34 Dose: 2 mg Tramadol HCl (Ultram) 50 mg PO Q6 PRN PRN Reason: Pain, moderate (4-7) Last Admin: 04/13/18 17:41 Dose: 50 mg Vitamin B Complex/Vitamin C (Berocca) 1 tab PO DAILY [facility] Last Admin: 04/14/18 09:35 Dose: 1 tab - Labs Labs: 04/13/18 07:51 04/13/18 07:51 PT 17.5 SECONDS (9.7-12.2) H D 04/11/18 17:16 INR 1.6 D 04/11/18 17:16 APTT 33 SECONDS (21-34) D 04/11/18 17:16 - Constitutional Appears: Well - Head Exam Head Exam: ATRAUMATIC, NORMAL INSPECTION, NORMOCEPHALIC - Eye Exam Eye Exam: EOMI, Normal appearance, PERRL Pupil Exam: NORMAL ACCOMODATION, PERRL - ENT Exam ENT Exam: Mucous Membranes Moist, Normal Exam - Neck Exam Neck Exam: Full ROM, Normal Inspection. absent: Lymphadenopathy - Respiratory Exam Respiratory Exam: Decreased Breath Sounds - Cardiovascular Exam Cardiovascular Exam: REGULAR RHYTHM, +S1, +S2 - GI/Abdominal Exam GI & Abdominal Exam: Soft, Diminished Bowel Sounds - Rectal Exam Rectal Exam: Deferred
[2018-04-14] MEDS: Metoprolol Succinate 100 mg XL Tab PO SCH (15:05)
--- NOTE | 2018-04-14 18:37 | CP.PCM.PN ---
Subjective - Date & Time of Evaluation Date of Evaluation: 04/14/18 Time of Evaluation: 08:00 - Subjective Subjective: legs swollen and red refusing GENNA IV antibiotics ordered await repeat blood c/s Objective - Vital Signs/Intake and Output Vital Signs (last 24 hours): Temp Pulse Resp BP Pulse Ox 98 F 98 H 20 113/65 96 04/14/18 16:00 04/14/18 16:00 04/14/18 16:00 04/14/18 16:00 04/14/18 16:00 Intake and Output: 04/14/18 04/14/18 06:59 18:59 Intake Total 600 Balance 600 - Medications Medications: Current Medications Amlodipine Besylate (Norvasc) 10 mg PO DAILY [facility] Last Admin: 04/14/18 09:37 Dose: 10 mg Aspirin (Ecotrin) 81 mg PO DAILY [facility] Last Admin: 04/14/18 09:35 Dose: 81 mg Ergocalciferol (Drisdol 50,000 Intl Units Cap) 1 cap PO QWK [facility] Last Admin: 04/10/18 10:53 Dose: 1 cap Hydrochlorothiazide (Microzide) 12.5 mg PO DAILY [facility] Last Admin: 04/14/18 15:05 Dose: Not Given Ceftriaxone Sodium 1 gm/ (Sodium Chloride) 100 mls @ 100 mls/hr IVPB DAILY [facility]; Protocol Last Admin: 04/14/18 09:35 Dose: 100 mls/hr Vancomycin/Sodium Chloride (Vancomycin 1 Gm/Ns 200 Ml) 1 gm in 200 mls @ 133 mls/hr IVPB Q12H [facility]; Protocol Stop: 04/17/18 19:01 Last Admin: 04/14/18 08:08 Dose: 133 mls/hr Losartan Potassium (Cozaar) 50 mg PO DAILY [facility] Last Admin: 04/14/18 09:37 Dose: 50 mg Metoprolol Succinate (Toprol Xl) 100 mg PO DAILY [facility] Last Admin: 04/14/18 15:05 Dose: Not Given Morphine Sulfate (Morphine) 2 mg IVP Q6H PRN PRN Reason: Pain, severe (8-10) Last Admin: 04/13/18 08:34 Dose: 2 mg Tramadol HCl (Ultram) 50 mg PO Q6 PRN PRN Reason: Pain, moderate (4-7) Last Admin: 04/14/18 15:19 Dose: 50 mg Vitamin B Complex/Vitamin C (Berocca) 1 tab PO DAILY [facility] Last Admin: 04/14/18 09:35 Dose: 1 tab - Labs Labs: 04/13/18 07:51 04/13/18 07:51 PT 17.5 SECONDS (9.7-12.2) H D 04/11/18 17:16 INR 1.6 D 04/11/18 17:16 APTT 33 SECONDS (21-34) D 04/11/18 17:16 - Constitutional Appears: Non-toxic, Chronically Ill - Head Exam Head Exam: NORMOCEPHALIC - Eye Exam Eye Exam: PERRL - ENT Exam ENT Exam: Mucous Membranes Dry - Neck Exam Neck Exam: absent: Lymphadenopathy - Respiratory Exam Respiratory Exam: Decreased Breath Sounds - Cardiovascular Exam Cardiovascular Exam: REGULAR RHYTHM - GI/Abdominal Exam GI & Abdominal Exam: Distended - Rectal Exam Rectal Exam: Deferred - Exam Exam: NORMAL INSPECTION - Extremities Exam Extremities Exam: Pedal Edema, Tenderness. absent: Calf Tenderness - Back Exam Back Exam: absent: CVA tenderness (L), CVA tenderness (R) - Neurological Exam Neurological Exam: Alert, Awake, CN II-XII Intact - Psychiatric Exam Psychiatric exam: Normal Mood - Skin Skin Exam: Dry Assessment and Plan (1) Cellulitis Status: Acute (2) Degenerative joint disease of right hip Status: Acute (3) Hip pain, right Status: Acute (4) Essential hypertension Status: Acute (5) Fall Status: Acute - Assessment and Plan (Free Text) Assessment: cont rx as ordered podiatry eval
[2018-04-15] MEDS: Vancomycin 1 gm/NS 200 ml 1 GM/200 ML BAG IVPB SCH ×2 (06:12→21:11)
[2018-04-15] MEDS: Vitamin B Complex/Vitamin C Tab PO SCH (10:07)
[2018-04-15] MEDS: Metoprolol Succinate 100 mg XL Tab PO SCH (10:07)
--- NOTE | 2018-04-15 10:36 | CP.PCM.PN ---
Subjective - Date & Time of Evaluation Date of Evaluation: 04/15/18 Time of Evaluation: 09:00 - Subjective Subjective: clinically same Objective - Vital Signs/Intake and Output Vital Signs (last 24 hours): Temp Pulse Resp BP Pulse Ox 97.6 F 86 18 160/69 H 98 04/15/18 08:00 04/15/18 08:00 04/15/18 08:00 04/15/18 08:00 04/15/18 08:00 Intake and Output: 04/15/18 04/15/18 06:59 18:59 Intake Total 400 Balance 400 - Medications Medications: Current Medications Amlodipine Besylate (Norvasc) 10 mg PO DAILY [facility] Last Admin: 04/15/18 10:07 Dose: 10 mg Aspirin (Ecotrin) 81 mg PO DAILY [facility] Last Admin: 04/15/18 10:04 Dose: 81 mg Ergocalciferol (Drisdol 50,000 Intl Units Cap) 1 cap PO QWK [facility] Last Admin: 04/10/18 10:53 Dose: 1 cap Hydrochlorothiazide (Microzide) 12.5 mg PO DAILY [facility] Last Admin: 04/15/18 10:07 Dose: 12.5 mg Ceftriaxone Sodium 1 gm/ (Sodium Chloride) 100 mls @ 100 mls/hr IVPB DAILY [facility]; Protocol Last Admin: 04/15/18 10:08 Dose: 100 mls/hr Vancomycin/Sodium Chloride (Vancomycin 1 Gm/Ns 200 Ml) 1 gm in 200 mls @ 133 mls/hr IVPB Q12H [facility]; Protocol Stop: 04/17/18 19:01 Last Admin: 04/15/18 06:12 Dose: 133 mls/hr Losartan Potassium (Cozaar) 50 mg PO DAILY [facility] Last Admin: 04/15/18 10:04 Dose: 50 mg Metoprolol Succinate (Toprol Xl) 100 mg PO DAILY [facility] Last Admin: 04/15/18 10:07 Dose: 100 mg Morphine Sulfate (Morphine) 2 mg IVP Q6H PRN PRN Reason: Pain, severe (8-10) Last Admin: 04/13/18 08:34 Dose: 2 mg Tramadol HCl (Ultram) 50 mg PO Q6 PRN PRN Reason: Pain, moderate (4-7) Last Admin: 04/15/18 10:05 Dose: 50 mg Vitamin B Complex/Vitamin C (Berocca) 1 tab PO DAILY [facility] Last Admin: 04/15/18 10:07 Dose: 1 tab - Labs Labs: 04/13/18 07:51 04/13/18 07:51 PT 17.5 SECONDS (9.7-12.2) H D 04/11/18 17:16 INR 1.6 D 04/11/18 17:16 APTT 33 SECONDS (21-34) D 04/11/18 17:16
--- NOTE | 2018-04-15 10:36 | CP.PCM.PN ---
Subjective - Date & Time of Evaluation Date of Evaluation: 04/15/18 Time of Evaluation: 08:45 - Subjective Subjective: clinically same Objective - Vital Signs/Intake and Output Vital Signs (last 24 hours): Temp Pulse Resp BP Pulse Ox 97.6 F 86 18 160/69 H 98 04/15/18 08:00 04/15/18 08:00 04/15/18 08:00 04/15/18 08:00 04/15/18 08:00 Intake and Output: 04/15/18 04/15/18 06:59 18:59 Intake Total 400 Balance 400 - Medications Medications: Current Medications Amlodipine Besylate (Norvasc) 10 mg PO DAILY [facility] Last Admin: 04/15/18 10:07 Dose: 10 mg Aspirin (Ecotrin) 81 mg PO DAILY [facility] Last Admin: 04/15/18 10:04 Dose: 81 mg Ergocalciferol (Drisdol 50,000 Intl Units Cap) 1 cap PO QWK [facility] Last Admin: 04/10/18 10:53 Dose: 1 cap Hydrochlorothiazide (Microzide) 12.5 mg PO DAILY [facility] Last Admin: 04/15/18 10:07 Dose: 12.5 mg Ceftriaxone Sodium 1 gm/ (Sodium Chloride) 100 mls @ 100 mls/hr IVPB DAILY [facility]; Protocol Last Admin: 04/15/18 10:08 Dose: 100 mls/hr Vancomycin/Sodium Chloride (Vancomycin 1 Gm/Ns 200 Ml) 1 gm in 200 mls @ 133 mls/hr IVPB Q12H [facility]; Protocol Stop: 04/17/18 19:01 Last Admin: 04/15/18 06:12 Dose: 133 mls/hr Losartan Potassium (Cozaar) 50 mg PO DAILY [facility] Last Admin: 04/15/18 10:04 Dose: 50 mg Metoprolol Succinate (Toprol Xl) 100 mg PO DAILY [facility] Last Admin: 04/15/18 10:07 Dose: 100 mg Morphine Sulfate (Morphine) 2 mg IVP Q6H PRN PRN Reason: Pain, severe (8-10) Last Admin: 04/13/18 08:34 Dose: 2 mg Tramadol HCl (Ultram) 50 mg PO Q6 PRN PRN Reason: Pain, moderate (4-7) Last Admin: 04/15/18 10:05 Dose: 50 mg Vitamin B Complex/Vitamin C (Berocca) 1 tab PO DAILY [facility] Last Admin: 04/15/18 10:07 Dose: 1 tab - Labs Labs: 04/13/18 07:51 04/13/18 07:51 PT 17.5 SECONDS (9.7-12.2) H D 04/11/18 17:16 INR 1.6 D 04/11/18 17:16 APTT 33 SECONDS (21-34) D 04/11/18 17:16 - Constitutional Appears: Well - Head Exam Head Exam: ATRAUMATIC, NORMAL INSPECTION, NORMOCEPHALIC - Eye Exam Eye Exam: EOMI, Normal appearance, PERRL Pupil Exam: NORMAL ACCOMODATION, PERRL - ENT Exam ENT Exam: Mucous Membranes Moist, Normal Exam - Neck Exam Neck Exam: Full ROM, Normal Inspection. absent: Lymphadenopathy - Respiratory Exam Respiratory Exam: Decreased Breath Sounds - Cardiovascular Exam Cardiovascular Exam: REGULAR RHYTHM, +S1, +S2 - GI/Abdominal Exam GI & Abdominal Exam: Soft, Diminished Bowel Sounds - Rectal Exam Rectal Exam: Deferred
[2018-04-15 11:59] LABS: BASO # 0.1 K/uL (0.0-0.2); BASO % 0.9 % (0.0-2.0); EOS # 0.1 K/uL (0.0-0.7); EOS % 1.3 % (0.0-4.0); HEMOGLOBIN 11.2 g/dL (11.0-16.0); LYMPH # 1.3 K/uL (1.0-4.3); LYMPH % 17.5 % (20.0-40.0); MEAN CELL VOLUME 96.7 fL (81.0-99.0); MEAN CORPUSCULAR HEMOGLOBIN 33.1 pg (27.0-31.0); MEAN CORPUSCULAR HGB CONC 34.2 g/dL (33.0-37.0); MEAN PLATELET VOLUME 8.5 fL (7.2-11.7); MONO # 0.7 K/uL (0.0-0.8); MONO % 9.9 % (0.0-10.0); NEUT # 5.1 K/uL (1.8-7.0); NEUT % 70.4 % (50.0-75.0); NRBC % 0.1 % (0.0-2.0); RBC 3.37 Mil/uL (3.80-5.20); RED CELL DISTRIBUTION WIDTH 14.5 % (11.5-14.5); WHITE BLOOD COUNT 7.3 K/uL (4.8-10.8)
[2018-04-15 12:19] LABS: ALB/GLOB RATIO 1.2 (1.0-2.1); ALBUMIN 3.7 g/dL (3.5-5.0); ALT/SGPT 78 U/L (9-52); AST/SGOT 59 U/L (14-36); BLOOD UREA NITROGEN 30 mg/dL (7-17); CALCIUM 9.4 mg/dl (8.6-10.4); GFR NON-AFRICAN AMERICAN 60
[2018-04-15 15:32] VITALS: RESP 20
--- NOTE | 2018-04-15 16:58 | CP.PCM.CON ---
History of Present Illness - History of Present Illness History of Present Illness: Podiatry consult note for Dr. Nguyen, 83 yo female with PMhx of diabetes seen at bedside for painful and swollen bilateral ankles. Patient states the swelling has been noted for many years now. Patient is in no acute distress and is AAox3. Patient states she had recently experienced a fall and is here at the hospital for that reason. Denies trauma to the lower extremity. Patient denies any posterior calf pain, f/n/v/sob/cp. Pshx; cholecystectomy Pmhx: hx of left dvt, diabetes, hyperlipidemia. Social hx: denies smoking or drinking alcohol Past Patient History - Infectious Disease Hx of Infectious Diseases: None - Tetanus Immunizations Tetanus Immunization: Unknown - Past Medical History & Family History Past Medical History?: Yes - Past Social History Smoking Status: Never Smoked - CARDIAC Hx Hypercholesterolemia: Yes Hx Hypertension: Yes - PULMONARY Hx Respiratory Disorders: No - NEUROLOGICAL Hx Neurological Disorder: No - HEENT Hx HEENT Problems: No - RENAL Hx Chronic Kidney Disease: No - ENDOCRINE/METABOLIC Hx Endocrine Disorders: No - HEMATOLOGICAL/ONCOLOGICAL Hx Human Immunodeficiency Virus (HIV): No - INTEGUMENTARY Hx Dermatological Problems: No - MUSCULOSKELETAL/RHEUMATOLOGICAL Hx Falls: Yes - GASTROINTESTINAL Hx Gastrointestinal Disorders: No - GENITOURINARY/GYNECOLOGICAL Hx Genitourinary Disorders: No - PSYCHIATRIC Hx Depression: No Hx Substance Use: No - SURGICAL HISTORY Hx Cholecystectomy: Yes - ANESTHESIA Hx Anesthesia: Yes Hx Anesthesia Reactions: No Hx Malignant Hyperthermia: No Meds Allergies/Adverse Reactions: Allergies Allergy/AdvReac Type Severity Reaction Status Date / Time No Known Allergies Allergy Verified 04/09/18 11:11 - Medications Medications: Current Medications Amlodipine Besylate (Norvasc) 10 mg PO DAILY [facility] Last Admin: 04/15/18 10:07 Dose: 10 mg Aspirin (Ecotrin) 81 mg PO DAILY [facility] Last Admin: 04/15/18 10:04 Dose: 81 mg Ergocalciferol (Drisdol 50,000 Intl Units Cap) 1 cap PO QWK [facility] Last Admin: 04/10/18 10:53 Dose: 1 cap Hydrochlorothiazide (Microzide) 12.5 mg PO DAILY [facility] Last Admin: 04/15/18 10:07 Dose: 12.5 mg Ceftriaxone Sodium 1 gm/ (Sodium Chloride) 100 mls @ 100 mls/hr IVPB DAILY [facility]; Protocol Last Admin: 04/15/18 10:08 Dose: 100 mls/hr Vancomycin/Sodium Chloride (Vancomycin 1 Gm/Ns 200 Ml) 1 gm in 200 mls @ 133 mls/hr IVPB Q12H [facility]; Protocol Stop: 04/17/18 19:01 Last Admin: 04/15/18 06:12 Dose: 133 mls/hr Losartan Potassium (Cozaar) 50 mg PO DAILY [facility] Last Admin: 04/15/18 10:04 Dose: 50 mg Metoprolol Succinate (Toprol Xl) 100 mg PO DAILY [facility] Last Admin: 04/15/18 10:07 Dose: 100 mg Morphine Sulfate (Morphine) 2 mg IVP Q6H PRN PRN Reason: Pain, severe (8-10) Last Admin: 04/13/18 08:34 Dose: 2 mg Tramadol HCl (Ultram) 50 mg PO Q6 PRN PRN Reason: Pain, moderate (4-7) Last Admin: 04/15/18 10:05 Dose: 50 mg Vitamin B Complex/Vitamin C (Berocca) 1 tab PO DAILY [facility] Last Admin: 04/15/18 10:07 Dose: 1 tab Physical Exam - Constitutional Appears: Well, Non-toxic, No Acute Distress - Head Exam Head Exam: ATRAUMATIC, NORMOCEPHALIC - Extremities Exam Additional comments: Bilateral lower extremity exam: Vascular: DP/PT nonpalpable secondary to pitting edema, CFT <3 secs x10, Tg warm to cool, +2 pitting edema perimalleolar and dorsal aspect of the foot, and pretibial b/l Derm: No open lesions, erythema and hemosiderin deposits noted perimalleolar b/l, no clinical signs of infection. Neuro: protective sensation diminished ipswich 0/4 b/l Ortho: pain with range of motion of the ankle joint, MSK 3/5 df/pf/eversion and inversion. - Neurological Exam Neurological exam: Alert, Oriented x3 - Psychiatric Exam Psychiatric exam: Normal Affect - Skin Skin Exam: Normal Color Results - Vital Signs Recent Vital Signs: Last Vital Signs Temp 97.8 F 04/15/18 15:00 Pulse 80 04/15/18 15:00 Resp 20 04/15/18 15:00 BP 132/75 04/15/18 15:00 Pulse Ox 98 04/15/18 15:00 - Labs Result Diagrams: 04/15/18 11:50 04/15/18 11:50 Labs: Laboratory Results - last 24 hr 04/14/18 04/15/18 04/15/18 21:38 06:08 11:29 WBC RBC Hgb Hct MCV MCH MCHC RDW Plt Count MPV Neut % (Auto) Lymph % (Auto) Roosevelt % (Auto) Eos % (Auto) Baso % (Auto) Neut # (Auto) Lymph # (Auto) Roosevelt # (Auto) Eos # (Auto) Baso # (Auto) Sodium Potassium Chloride Carbon Dioxide Anion Gap BUN Creatinine Est GFR ( Amer) Est GFR (Non-Af Amer) POC Glucose (mg/dL) 119 H 109 203 H Random Glucose Calcium Total Bilirubin AST ALT Alkaline Phosphatase Total Protein Albumin Globulin Albumin/Globulin Ratio 04/15/18 04/15/18 04/15/18 11:50 11:50 16:25 WBC 7.3 RBC 3.37 L Hgb 11.2 Hct 32.6 L MCV 96.7 MCH 33.1 H MCHC 34.2 RDW 14.5 Plt Count 262 MPV 8.5 Neut % (Auto) 70.4 Lymph % (Auto) 17.5 L Roosevelt % (Auto) 9.9 Eos % (Auto) 1.3 Baso % (Auto) 0.9 Neut # (Auto) 5.1 Lymph # (Auto) 1.3 Roosevelt # (Auto) 0.7 Eos # (Auto) 0.1 Baso # (Auto) 0.1 Sodium 142 Potassium 4.0 Chloride 104 Carbon Dioxide 24 Anion Gap 18 BUN 30 H Creatinine 0.9 Est GFR ( Amer) > 60 Est GFR (Non-Af Amer) 60 POC Glucose (mg/dL) 144 H Random Glucose 142 H Calcium 9.4 Total Bilirubin 0.7 AST 59 H ALT 78 H Alkaline Phosphatase 104 Total Protein 6.7 Albumin 3.7 Globulin 3.0 Albumin/Globulin Ratio 1.2 Assessment & Plan - Assessment and Plan (Free Text) Assessment: 83 yo female seen and evaluated for painful swollen b/l ankle. Plan: Patient seen and evaluated Chart, labs and vitals reviewed; absent leukocytosis, afebrile. Patient seen with the attending, Dr Nguyen Arterial duplex: no DVT Arterial doppler ordered to evaluate blood flow to the lower extremity Podiatry will follow the patient while in house Thank you for the consult
[2018-04-16] MEDS: Vancomycin 1 gm/NS 200 ml 1 GM/200 ML BAG IVPB SCH ×2 (06:15→19:54)
[2018-04-16] MEDS: Metoprolol Succinate 100 mg XL Tab PO SCH (09:36)
[2018-04-16] MEDS: Vitamin B Complex/Vitamin C Tab PO SCH (09:36)
--- NOTE | 2018-04-16 09:54 | CP.PCM.PN ---
Subjective - Date & Time of Evaluation Date of Evaluation: 04/16/18 Time of Evaluation: 09:53 Objective - Vital Signs/Intake and Output Vital Signs (last 24 hours): Temp Pulse Resp BP Pulse Ox 97.8 F 77 20 167/77 H 96 04/16/18 08:56 04/16/18 08:56 04/16/18 08:56 04/16/18 08:56 04/16/18 08:56 - Medications Medications: Current Medications Amlodipine Besylate (Norvasc) 10 mg PO DAILY [facility] Last Admin: 04/16/18 09:36 Dose: 10 mg Aspirin (Ecotrin) 81 mg PO DAILY [facility] Last Admin: 04/16/18 09:36 Dose: 81 mg Ergocalciferol (Drisdol 50,000 Intl Units Cap) 1 cap PO QWK [facility] Last Admin: 04/10/18 10:53 Dose: 1 cap Hydrochlorothiazide (Microzide) 12.5 mg PO DAILY [facility] Last Admin: 04/16/18 09:44 Dose: 12.5 mg Ceftriaxone Sodium 1 gm/ (Sodium Chloride) 100 mls @ 100 mls/hr IVPB DAILY [facility]; Protocol Last Admin: 04/16/18 09:36 Dose: 100 mls/hr Vancomycin/Sodium Chloride (Vancomycin 1 Gm/Ns 200 Ml) 1 gm in 200 mls @ 133 mls/hr IVPB Q12H [facility]; Protocol Stop: 04/17/18 19:01 Last Admin: 04/16/18 06:15 Dose: 133 mls/hr Losartan Potassium (Cozaar) 50 mg PO DAILY [facility] Last Admin: 04/16/18 09:36 Dose: 50 mg Metoprolol Succinate (Toprol Xl) 100 mg PO DAILY [facility] Last Admin: 04/16/18 09:36 Dose: 100 mg Morphine Sulfate (Morphine) 2 mg IVP Q6H PRN PRN Reason: Pain, severe (8-10) Last Admin: 04/13/18 08:34 Dose: 2 mg Tramadol HCl (Ultram) 50 mg PO Q6 PRN PRN Reason: Pain, moderate (4-7) Last Admin: 04/16/18 09:47 Dose: 50 mg Vitamin B Complex/Vitamin C (Berocca) 1 tab PO DAILY [facility] Last Admin: 04/16/18 09:36 Dose: 1 tab - Labs Labs: 04/15/18 11:50 04/15/18 11:50 PT 17.5 SECONDS (9.7-12.2) H D 04/11/18 17:16 INR 1.6 D 04/11/18 17:16 APTT 33 SECONDS (21-34) D 04/11/18 17:16
--- NOTE | 2018-04-16 14:54 | CP.PCM.PN ---
Subjective - Date & Time of Evaluation Date of Evaluation: 04/16/18 Time of Evaluation: 07:00 - Subjective Subjective: cellulitis less refusing rehab Objective - Vital Signs/Intake and Output Vital Signs (last 24 hours): Temp Pulse Resp BP Pulse Ox 97.8 F 77 20 167/77 H 96 04/16/18 08:56 04/16/18 08:56 04/16/18 08:56 04/16/18 08:56 04/16/18 08:56 - Medications Medications: Current Medications Amlodipine Besylate (Norvasc) 10 mg PO DAILY [facility] Last Admin: 04/16/18 09:36 Dose: 10 mg Aspirin (Ecotrin) 81 mg PO DAILY [facility] Last Admin: 04/16/18 09:36 Dose: 81 mg Ergocalciferol (Drisdol 50,000 Intl Units Cap) 1 cap PO QWK [facility] Last Admin: 04/10/18 10:53 Dose: 1 cap Hydrochlorothiazide (Microzide) 12.5 mg PO DAILY [facility] Last Admin: 04/16/18 09:44 Dose: 12.5 mg Ceftriaxone Sodium 1 gm/ (Sodium Chloride) 100 mls @ 100 mls/hr IVPB DAILY [facility]; Protocol Last Admin: 04/16/18 09:36 Dose: 100 mls/hr Vancomycin/Sodium Chloride (Vancomycin 1 Gm/Ns 200 Ml) 1 gm in 200 mls @ 133 mls/hr IVPB Q12H [facility]; Protocol Stop: 04/17/18 19:01 Last Admin: 04/16/18 06:15 Dose: 133 mls/hr Losartan Potassium (Cozaar) 50 mg PO DAILY [facility] Last Admin: 04/16/18 09:36 Dose: 50 mg Metoprolol Succinate (Toprol Xl) 100 mg PO DAILY [facility] Last Admin: 04/16/18 09:36 Dose: 100 mg Morphine Sulfate (Morphine) 2 mg IVP Q6H PRN PRN Reason: Pain, severe (8-10) Last Admin: 04/13/18 08:34 Dose: 2 mg Tramadol HCl (Ultram) 50 mg PO Q6 PRN PRN Reason: Pain, moderate (4-7) Last Admin: 04/16/18 09:47 Dose: 50 mg Vitamin B Complex/Vitamin C (Berocca) 1 tab PO DAILY [facility] Last Admin: 04/16/18 09:36 Dose: 1 tab - Labs Labs: 04/15/18 11:50 04/15/18 11:50 PT 17.5 SECONDS (9.7-12.2) H D 04/11/18 17:16 INR 1.6 D 04/11/18 17:16 APTT 33 SECONDS (21-34) D 04/11/18 17:16 - Constitutional Appears: Non-toxic, Chronically Ill - Head Exam Head Exam: NORMOCEPHALIC - Eye Exam Eye Exam: Normal appearance - ENT Exam ENT Exam: Mucous Membranes Dry - Neck Exam Neck Exam: absent: Lymphadenopathy - Respiratory Exam Respiratory Exam: Decreased Breath Sounds - Cardiovascular Exam Cardiovascular Exam: REGULAR RHYTHM - GI/Abdominal Exam GI & Abdominal Exam: Distended, Soft - Rectal Exam Rectal Exam: Deferred - Exam Exam: NORMAL INSPECTION Assessment and Plan (1) Cellulitis Status: Acute (2) Degenerative joint disease of right hip Status: Acute (3) Hip pain, right Status: Acute (4) Essential hypertension Status: Acute (5) Fall Status: Acute - Assessment and Plan (Free Text) Assessment: afb neg thus far needs 14 days iv rx follow up cxr consider IVIG
[2018-04-17] MEDS: Vancomycin 1 gm/NS 200 ml 1 GM/200 ML BAG IVPB SCH (06:25)
[2018-04-17] MEDS: Ergocalciferol 50,000 Intl Units Cap PO SCH (09:42)
[2018-04-17] MEDS: Vitamin B Complex/Vitamin C Tab PO SCH (09:43)
[2018-04-17] MEDS: Metoprolol Succinate 100 mg XL Tab PO SCH (09:43)
--- NOTE | 2018-04-17 10:01 | CP.PCM.PN ---
<Adrian Nguyen - Last Filed: 04/17/18 10:00> Subjective - Date & Time of Evaluation Date of Evaluation: 04/17/18 Time of Evaluation: 10:01 Objective - Vital Signs/Intake and Output Vital Signs (last 24 hours): Temp Pulse Resp BP Pulse Ox 97.6 F 75 20 163/70 H 97 04/17/18 07:19 04/17/18 07:19 04/17/18 07:19 04/17/18 09:43 04/17/18 07:19 Intake and Output: 04/17/18 04/17/18 06:59 18:59 Intake Total 550 Balance 550 - Medications Medications: Current Medications Amlodipine Besylate (Norvasc) 10 mg PO DAILY [facility] Last Admin: 04/17/18 09:43 Dose: 10 mg Aspirin (Ecotrin) 81 mg PO DAILY [facility] Last Admin: 04/17/18 09:43 Dose: 81 mg Ergocalciferol (Drisdol 50,000 Intl Units Cap) 1 cap PO QWK [facility] Last Admin: 04/17/18 09:42 Dose: 1 cap Hydrochlorothiazide (Microzide) 12.5 mg PO DAILY [facility] Last Admin: 04/17/18 09:43 Dose: 12.5 mg Ceftriaxone Sodium 1 gm/ (Sodium Chloride) 100 mls @ 100 mls/hr IVPB DAILY [facility]; Protocol Last Admin: 04/17/18 09:41 Dose: 100 mls/hr Vancomycin/Sodium Chloride (Vancomycin 1 Gm/Ns 200 Ml) 1 gm in 200 mls @ 133 mls/hr IVPB Q12H [facility]; Protocol Stop: 04/17/18 19:01 Last Admin: 04/17/18 06:25 Dose: 133 mls/hr Losartan Potassium (Cozaar) 50 mg PO DAILY [facility] Last Admin: 04/17/18 09:43 Dose: 50 mg Metoprolol Succinate (Toprol Xl) 100 mg PO DAILY [facility] Last Admin: 04/17/18 09:43 Dose: 100 mg Morphine Sulfate (Morphine) 2 mg IVP Q6H PRN PRN Reason: Pain, severe (8-10) Last Admin: 04/13/18 08:34 Dose: 2 mg Tramadol HCl (Ultram) 50 mg PO Q6 PRN PRN Reason: Pain, moderate (4-7) Last Admin: 04/17/18 09:51 Dose: 50 mg Vitamin B Complex/Vitamin C (Berocca) 1 tab PO DAILY [facility] Last Admin: 04/17/18 09:43 Dose: 1 tab - Labs Labs: 04/15/18 11:50 04/15/18 11:50 PT 17.5 SECONDS (9.7-12.2) H D 04/11/18 17:16 INR 1.6 D 04/11/18 17:16 APTT 33 SECONDS (21-34) D 04/11/18 17:16 <La Nena Davis - Last Filed: 04/17/18 18:02> Subjective - Subjective Subjective: Patient seen and evaluated for bilateral lower extremity pain + edema. Patient denies any pain in lower extremities today; seen OOB in recliner with legs elevated. For arterial duplex today. Objective - Vital Signs/Intake and Output Vital Signs (last 24 hours): Temp Pulse Resp BP Pulse Ox 97.9 F 67 20 136/75 98 04/17/18 16:20 04/17/18 16:20 04/17/18 16:20 04/17/18 16:20 04/17/18 16:20 Intake and Output: 04/17/18 04/17/18 06:59 18:59 Intake Total 550 950 Balance 550 950 - Labs Labs: 04/17/18 14:20 04/17/18 11:44 PT 11.5 SECONDS (9.7-12.2) 04/17/18 14:20 INR 1.1 04/17/18 14:20 APTT 33 SECONDS (21-34) D 04/11/18 17:16
[2018-04-17 12:08] LABS: ALB/GLOB RATIO 1.1 (1.0-2.1); ALBUMIN 3.3 g/dL (3.5-5.0); ALT/SGPT 87 U/L (9-52); AST/SGOT 77 U/L (14-36); BLOOD UREA NITROGEN 28 mg/dL (7-17); CALCIUM 9.3 mg/dl (8.6-10.4); GFR NON-AFRICAN AMERICAN 53
--- NOTE | 2018-04-17 13:17 | VASCLAB ---
Date of service: 04/17/2018 STUDY DESCRIPTION: Lower Extremity Arterial Exam (PVR). HISTORY: evaluate blood flow to the lower extremity PRIORS: None. TECHNIQUE: Pulse volume recording waveforms and segmental pressures of bilateral lower extremities at multiple levels were obtained. Ankle Brachial Indices (ABIs) were calculated. Report prepared by ANGELITO Sands, RVT RIGHT LOWER EXTREMITY: * Brachial artery: Pressure - 178 mmHg. * High thigh: Pressure - mmHg: Ratio - : PVR waveform - Pulsatile * Low thigh: Pressure - mmHg: Ratio - PVR waveform: Pulsatile * Calf: Pressure - 220 mmHg: Ratio - NC PVR waveform: Pulsatile * Posterior tibial Artery: Pressure - 220 mmHg: Ratio - NC PVR waveform: Pulsatile * Dorsalis pedis Artery: Pressure - 188 mmHg: Ratio - 1.06 PVR waveform: Pulsatile * Great toe: Pressure - 151 mmHg: Ratio - 0.85 PVR waveform: Pulsatile Ankle brachial index (IRVING): NC LEFT LOWER EXTREMITY: * Brachial artery: Pressure - 165 mmHg. * High thigh: Pressure - mmHg: Ratio - : PVR waveform - Pulsatile * Low thigh: Pressure - mmHg: Ratio - PVR waveform: Pulsatile * Calf: Pressure - 220 mmHg: Ratio - NC PVR waveform: Pulsatile * Posterior tibial Artery: Pressure - 212 mmHg: Ratio - 1.19 PVR waveform: Pulsatile * Dorsalis pedis Artery: Pressure - 193 mmHg: Ratio - 1.08 PVR waveform: Pulsatile * Great toe: Pressure - 155 mmHg: Ratio - 0.87 PVR waveform: Pulsatile Ankle brachial index (IRVING): 1.19 OTHER FINDINGS: Right: Left: IMPRESSION: Right: The ankle pressure index of the right lower extremity is non-diagnostic due to possible arterial wall calcifications. Left: There was no evidence of hemodynamically significant arterial insufficiency in the left lower extremity.
[2018-04-17 14:29] LABS: BASO # 0.1 K/uL (0.0-0.2); BASO % 1.2 % (0.0-2.0); EOS # 0.1 K/uL (0.0-0.7); EOS % 1.7 % (0.0-4.0); HEMOGLOBIN 10.8 g/dL (11.0-16.0); LYMPH # 1.2 K/uL (1.0-4.3); LYMPH % 17.8 % (20.0-40.0); MEAN CELL VOLUME 96.4 fL (81.0-99.0); MEAN CORPUSCULAR HEMOGLOBIN 32.7 pg (27.0-31.0); MEAN CORPUSCULAR HGB CONC 33.9 g/dL (33.0-37.0); MEAN PLATELET VOLUME 8.2 fL (7.2-11.7); MONO # 0.8 K/uL (0.0-0.8); NEUT # 4.7 K/uL (1.8-7.0); NEUT % 67.3 % (50.0-75.0); RBC 3.31 Mil/uL (3.80-5.20); WHITE BLOOD COUNT 6.9 K/uL (4.8-10.8)
[2018-04-17 14:58] LABS: INR 1.1; PROTHROMBIN TIME 11.5 SECONDS (9.7-12.2)
--- NOTE | 2018-04-17 16:02 | CP.PCM.PN ---
Subjective - Date & Time of Evaluation Date of Evaluation: 04/17/18 Time of Evaluation: 16:01 Objective - Vital Signs/Intake and Output Vital Signs (last 24 hours): Temp Pulse Resp BP Pulse Ox 97.6 F 75 20 163/70 H 97 04/17/18 07:19 04/17/18 07:19 04/17/18 07:19 04/17/18 09:43 04/17/18 07:19 Intake and Output: 04/17/18 04/17/18 06:59 18:59 Intake Total 550 950 Balance 550 950 - Medications Medications: Current Medications Amlodipine Besylate (Norvasc) 10 mg PO DAILY [facility] Last Admin: 04/17/18 09:43 Dose: 10 mg Aspirin (Ecotrin) 81 mg PO DAILY [facility] Last Admin: 04/17/18 09:43 Dose: 81 mg Ergocalciferol (Drisdol 50,000 Intl Units Cap) 1 cap PO QWK [facility] Last Admin: 04/17/18 09:42 Dose: 1 cap Hydrochlorothiazide (Microzide) 12.5 mg PO DAILY [facility] Last Admin: 04/17/18 09:43 Dose: 12.5 mg Ceftriaxone Sodium 1 gm/ (Sodium Chloride) 100 mls @ 100 mls/hr IVPB DAILY [facility]; Protocol Last Admin: 04/17/18 09:41 Dose: 100 mls/hr Vancomycin/Sodium Chloride (Vancomycin 1 Gm/Ns 200 Ml) 1 gm in 200 mls @ 133 mls/hr IVPB Q12H [facility]; Protocol Stop: 04/17/18 19:01 Last Admin: 04/17/18 06:25 Dose: 133 mls/hr Losartan Potassium (Cozaar) 50 mg PO DAILY [facility] Last Admin: 04/17/18 09:43 Dose: 50 mg Metoprolol Succinate (Toprol Xl) 100 mg PO DAILY [facility] Last Admin: 04/17/18 09:43 Dose: 100 mg Morphine Sulfate (Morphine) 2 mg IVP Q6H PRN PRN Reason: Pain, severe (8-10) Last Admin: 04/13/18 08:34 Dose: 2 mg Tramadol HCl (Ultram) 50 mg PO Q6 PRN PRN Reason: Pain, moderate (4-7) Last Admin: 04/17/18 09:51 Dose: 50 mg Vitamin B Complex/Vitamin C (Berocca) 1 tab PO DAILY [facility] Last Admin: 04/17/18 09:43 Dose: 1 tab - Labs Labs: 04/17/18 14:20 04/17/18 11:44 PT 11.5 SECONDS (9.7-12.2) 04/17/18 14:20 INR 1.1 04/17/18 14:20 APTT 33 SECONDS (21-34) D 04/11/18 17:16 Assessment and Plan - Assessment and Plan (Free Text) Assessment: PLACE UNDER THE SERVICE OF DR Shadi RIVERA AT [facility] ----CALL FOR ADMITTING ORDER FOLLOW UP WITH DR SRINIVASAN IN 2 WEEK AT HIS OFFICE ---CALL FOR APPOINTMENT [facility] HOME MEDICATION NEW PRESCRIPTION GIVEN VANCO 1G IVPB Q12H FOR 7 DAYS AMLODIPINE 10 MG PO DIALY ASA 81 MG PO ONE TAB DAILY INR ON 04/19 AND EVERY OTHER DAY UNTIL REACH A THERAPEUTIC LEVEL BETWEEEN 2- 3 / CALL DR Shadi RIVERA FOR RESULT patient refused further imaging ACTIVITY TOLERATED AND ORTHO RECOMMENDATION NWB RLE to protect hip as can not rule out occult fx as per Dr. Power CALL DR Shadi RIVERA FOR FURTHER ORDERS
[2018-04-17 16:21] VITALS: BP 136/75; PULSE 67; TEMP 97.9; O2SAT 98
--- NOTE | 2018-04-18 23:48 | CP.PCM.DIS ---
Provider - Provider Date of Admission: 04/11/18 12:36 Attending physician: Joy Coyle MD Hospital Course - Lab Results Lab Results: Micro Results 04/12/18 21:17 Blood Blood Culture - Final NO GROWTH AFTER 5 DAYS 04/12/18 21:17 Blood Gram Stain - Final TEST NOT PERFORMED 04/12/18 20:30 Blood Blood Culture - Final NO GROWTH AFTER 5 DAYS 04/12/18 20:30 Blood Gram Stain - Final TEST NOT PERFORMED 04/09/18 12:40 Blood Blood Culture - Final NO GROWTH AFTER 5 DAYS 04/09/18 12:40 Blood Gram Stain - Final TEST NOT PERFORMED 04/09/18 13:10 Blood S.aureus & Coag-Neg Staph PNA FISH - Final 04/09/18 13:10 Blood Blood Culture - Final Coagulase Neg Staphylococcus 04/09/18 13:10 Blood Gram Stain - Final Most Recent Lab Values WBC 6.9 K/uL (4.8-10.8) 04/17/18 14:20 RBC 3.31 Mil/uL (3.80-5.20) L 04/17/18 14:20 Hgb 10.8 g/dL (11.0-16.0) L 04/17/18 14:20 Hct 31.9 % (34.0-47.0) L 04/17/18 14:20 MCV 96.4 fL (81.0-99.0) 04/17/18 14:20 MCH 32.7 pg (27.0-31.0) H 04/17/18 14:20 MCHC 33.9 g/dL (33.0-37.0) 04/17/18 14:20 RDW 14.0 % (11.5-14.5) 04/17/18 14:20 Plt Count 286 K/uL (130-400) 04/17/18 14:20 MPV 8.2 fL (7.2-11.7) 04/17/18 14:20 Neut % (Auto) 67.3 % (50.0-75.0) 04/17/18 14:20 Lymph % (Auto) 17.8 % (20.0-40.0) L 04/17/18 14:20 [place] % (Auto) 12.0 % (0.0-10.0) H 04/17/18 14:20 Eos % (Auto) 1.7 % (0.0-4.0) 04/17/18 14:20 Baso % (Auto) 1.2 % (0.0-2.0) 04/17/18 14:20 Neut # (Auto) 4.7 K/uL (1.8-7.0) 04/17/18 14:20 Lymph # (Auto) 1.2 K/uL (1.0-4.3) 04/17/18 14:20 [place] # (Auto) 0.8 K/uL (0.0-0.8) 04/17/18 14:20 Eos # (Auto) 0.1 K/uL (0.0-0.7) 04/17/18 14:20 Baso # (Auto) 0.1 K/uL (0.0-0.2) 04/17/18 14:20 ESR 20 mm/hr (0-20) 04/09/18 11:49 PT 11.5 SECONDS (9.7-12.2) 04/17/18 14:20 INR 1.1 04/17/18 14:20 APTT 33 SECONDS (21-34) D 04/11/18 17:16 Sodium 138 mmol/L (132-148) 04/17/18 11:44 Potassium 4.2 mmol/L (3.6-5.2) 04/17/18 11:44 Chloride 104 mmol/L (98-107) 04/17/18 11:44 Carbon Dioxide 24 mmol/L (22-30) 04/17/18 11:44 Anion Gap 14 (10-20) 04/17/18 11:44 BUN 28 mg/dL (7-17) H 04/17/18 11:44 Creatinine 1.0 mg/dL (0.7-1.2) 04/17/18 11:44 Est GFR ( Amer) > 60 04/17/18 11:44 Est GFR (Non-Af Amer) 53 04/17/18 11:44 POC Glucose (mg/dL) 114 mg/dL (65-110) H 04/17/18 16:49 Random Glucose 146 mg/dL (65-105) H 04/17/18 11:44 Hemoglobin A1c 5.7 % (4.2-6.5) 04/10/18 11:17 Calcium 9.3 mg/dl (8.6-10.4) 04/17/18 11:44 Total Bilirubin 0.6 mg/dL (0.2-1.3) 04/17/18 11:44 AST 77 U/L (14-36) H D 04/17/18 11:44 ALT 87 U/L (9-52) H 04/17/18 11:44 Alkaline Phosphatase 108 U/L (38-126) 04/17/18 11:44 Total Creatine Kinase 393 U/L (30-135) H 04/10/18 01:06 CK-MB (Mass) 4.63 ng/mL (0.0-3.38) H 04/10/18 01:06 Troponin I 0.1200 ng/mL (0.00-0.120) 04/10/18 01:06 C-React Prot High Sens 4.46 mg/L (1.00-3.00) H 04/09/18 11:51 NT-Pro-B Natriuret Pep 533 pg/mL (0-900) 04/09/18 11:49 Total Protein 6.2 g/dL (6.3-8.3) L 04/17/18 11:44 Albumin 3.3 g/dL (3.5-5.0) L 04/17/18 11:44 Globulin 2.9 gm/dL (2.2-3.9) 04/17/18 11:44 Albumin/Globulin Ratio 1.1 (1.0-2.1) 04/17/18 11:44 Triglycerides 57 mg/dL (0-149) 04/10/18 09:01 Cholesterol 159 mg/dL (0-199) 04/10/18 09:01 LDL Cholesterol Direct 50 mg/dL (0-129) 04/10/18 09:01 HDL Cholesterol 78 mg/dL (30-70) H 04/10/18 09:01 25-OH Vitamin D Total 57.0 NG/ML (30.0-100.0) 04/11/18 13:47 Procalcitonin 0.06 NG/ML (0.19-0.49) L 04/12/18 20:30 TSH 3rd Generation 1.79 mIU/L (0.46-4.68) 04/10/18 09:01 Prolactin 15.6 ng/mL (3.0-18.9) 04/10/18 01:06 Urine Color Yellow (YELLOW) 04/09/18 12:46 Urine Clarity Clear (Clear) 04/09/18 12:46 Urine pH 5.0 (5.0-8.0) 04/09/18 12:46 Ur Specific Sidman 1.010 (1.003-1.030) 04/09/18 12:46 Urine Protein Negative mg/dL (NEGATIVE) 04/09/18 12:46 Urine Glucose (UA) Normal mg/dL (Normal) 04/09/18 12:46 Urine Ketones Negative mg/dL (NEGATIVE) 04/09/18 12:46 Urine Blood 2+ (NEGATIVE) H 04/09/18 12:46 Urine Nitrate Negative (NEGATIVE) 04/09/18 12:46 Urine Bilirubin Negative (NEGATIVE) 04/09/18 12:46 Urine Urobilinogen Normal mg/dL (0.2-1.0) 04/09/18 12:46 Ur Leukocyte Esterase Neg Christiano/uL (Negative) 04/09/18 12:46 Urine WBC (Auto) < 1 /hpf (0-5) 04/09/18 12:46 Urine RBC (Auto) 11 /hpf (0-3) H 04/09/18 12:46 Ur Squamous Epith Cells 1 /hpf (0-5) 04/09/18 12:46 Vancomycin Trough 15.6 ug/mL (5.0-10.0) H 04/14/18 06:20 Hepatitis A IgM Ab Negative (NEGATIVE) 04/13/18 07:51 Hep Bs Antigen Negative (NEGATIVE) 04/13/18 07:51 Hep B Core IgM Ab Negative (NEGATIVE) 04/13/18 07:51 Hepatitis C Antibody Negative (NEGATIVE) 04/13/18 07:51 Discharge Exam - Head Exam Head Exam: NORMOCEPHALIC Discharge Plan - Discharge Medications Prescriptions: Aspirin [Ecotrin] 81 mg PO DAILY 30 Days tabec amLODIPine [Norvasc] 10 mg PO DAILY 30 Days tab Vancomycin/0.9 % Sod Chloride [Vancomycin 1 G/200Ml-0.9% NaCl] 1 gm IV Q12H 7 Days froz.[email or web address] - Follow Up Plan Condition: STABLE Disposition: REHAB FACILITY/REHAB UNIT Instructions: Osteoarthritis (DC), Near Fainting (DC), Cellulitis (DC) Additional Instructions: PLACE UND[facility] THE SERVICE OF DR Shadi COYLE AT [facility] ----CALL FOR ADMITTING ORDER FOLLOW UP WITH DR SRINIVASAN IN 2 WEEK AT HIS OFFICE ---CALL FOR APPOINTMENT DC WITH SALINE LOCK CONTINUE HOME MEDICATION NEW PRESCRIPTION GIVEN VANCO 1G IVPB Q12H FOR 7 DAYS AMLODIPINE 10 MG PO DIALY ASA 81 MG PO ONE TAB DAILY INR ON 04/19 AND EVERY OTHER DAY UNTIL REACH A THERAPEUTIC LEVEL BETWEEN 2-3 / CALL DR Shadi COYLE FOR RESULT patient refused further imaging ACTIVITY TOLERATED AND ORTHO RECOMMENDATION NWB RLE to protect hip as can not rule out occult fx as per Dr. Power CALL DR Shadi COYLE FOR FURTHER ORDERS Referrals: Paula Srinivasan MD [Staff Provider] - Robe Vega MD [Staff Provider] - Jessica Coyle MD [Staff Provider] - Adrian Nguyen DPM [Staff Provider] -
== END 2018-04-17 17:03 | DRG 554 ==
LOC: C.ER 11:01 → C.9E 13:07 → C.5S 16:08 → OBSVTOIN 04-11 12:36
PROVIDERS: ADMIT Internal Medicine Nephrology; ATTEND Internal Medicine Nephrology
DX: M16.11 Unilateral primary osteoarthritis, right hip (principal); L03.90 Cellulitis, unspecified; R55 Syncope and collapse; E78.5 Hyperlipidemia, unspecified; I10 Essential (primary) hypertension; R29.6 Repeated falls; Z86.718 Personal history of other venous thrombosis and embolism; W19.XXXA Unspecified fall, initial encounter; R31.9 Hematuria, unspecified; M47.9 Spondylosis, unspecified; T45.515A Adverse effect of anticoagulants, initial encounter; E11.40 Type 2 diabetes mellitus with diabetic neuropathy, unspecified